=== PATIENT | female | born 1960 | race Caucasian/White ===

== ENCOUNTER → 2016-06-13 | Outpatient (CLI) | payer MEDICARE ==
--- NOTE | 2016-06-14 11:04 | MM ---
Reason for exam: screening (asymptomatic). Last mammogram was performed 1 year and 2 months ago. History: Patient is postmenopausal and has history of other cancer at age 54. Took estrogen for 12 years beginning at age 39. Physical Findings: A clinical breast exam by your physician is recommended on an annual basis and results should be correlated with mammographic findings. MG 3D Screening Mammo W/Cad Bilateral CC and MLO view(s) were taken. Prior study comparison: April 14, 2015, bilateral MG 3d screening mammo w/cad. June 27, 2013, left breast MG diagnostic mammo LT w CAD. The breast tissue is heterogeneously dense. This may lower the sensitivity of mammography. There is no discrete abnormality. No significant changes when compared with prior studies. ASSESSMENT: Negative, BI-RAD 1 RECOMMENDATION: Routine screening mammogram of both breasts in 1 year.
== END | disposition home or self-care (01) ==
LOC: RADMAMWWP 15:52
PROVIDERS: ATTEND Obstetrics & Gynecology
DX: Z12.31 Encounter for screening mammogram for malignant neoplasm of breast (principal)
CPT/HCPCS: 77063; G0202

== ENCOUNTER → 2017-06-29 | Outpatient (CLI) | payer MEDICARE ==
--- NOTE | 2017-06-30 11:29 | BD ---
EXAMINATION TYPE: Axial Bone Density DATE OF EXAM: 06/29/2017 COMPARISON: NONE CLINICAL HISTORY: Z13.820 OSTEOPOROSIS SCREENING Height: 65.5 Weight: 217.8 FRAX RISK QUESTIONS: Alcohol (3 or more units per day): no Family History (Parent hip fracture): no Glucocorticoids (More than 3mos): yes (Ex: prednisone, prednisolone, methylprednisolone, dexamethasone, and hydrocortisone). History of Fracture in Adulthood: no Secondary Osteoporosis: 1. Type 1 Diabetes: no 2. Hyperthyroidism: no 3. Menopause before 45: yes 4. Malnutrition: no 5. Chronic liver disease: no Rheumatoid Arthritis: no Current Tobacco Use: no RISK FACTORS HISTORY OF: Family History of Osteoporosis: yes Active: yes Diet low in dairy products/other sources of calcium: no Postmenopausal woman: age 39 hysterectomy Lost more than 2 inches in height since high school: yes Frequent falls: yes Adrenal Insufficiency: no MEDICATIONS: effexor, besylate amlodipine, Neurontin, mexiletine, Restasis, travantanz, singulair, vi tamins, ventolin Prednisone or other steroids: yes/cortef How Long: for a while Additional History: EXAM MEASUREMENTS: Bone mineral densitometry was performed using the [employer] System. Bone mineral density as measured about the Lumbar spine is: ----- L1-L4(G/cm2): 1.077 T Score Values are as follows: ----- L2: -1.1 ----- L3: -0.7 ----- L4: -0.5 ----- L1-L4: -0.9 Bone mineral density has: decreased -6.8 % since study of: 03/02/2012 Bone mineral density about the R hip (g/cm2): 0.995 Bone mineral density about the L hip (g/cm2): 1.062 T Score values are as follows: -----R Neck: -0.3 -----L Neck: 0.2 -----R Total: 0.1 -----L Total: 0.5 Bone mineral density has: increased 2.7 % since study of: 12.21.2012 IMPRESSION: No evidence for osteoporosis or osteopenia. NOTE: T-SCORE=SD OF THE YOUNG ADULT MEAN.
--- NOTE | 2017-06-30 13:28 | MM ---
Reason for exam: screening (asymptomatic). Last mammogram was performed 1 year and 1 month ago. History: Patient is postmenopausal and has history of other cancer at age 54. Took estrogen for 12 years beginning at age 39. Physical Findings: A clinical breast exam by your physician is recommended on an annual basis and results should be correlated with mammographic findings. MG Screening Mammo w CAD Bilateral CC and MLO view(s) were taken. Prior study comparison: June 13, 2016, bilateral MG 3d screening mammo w/cad. April 14, 2015, bilateral MG 3d screening mammo w/cad. The breast tissue is heterogeneously dense. This may lower the sensitivity of mammography. There are benign appearing few left breast calcifications, similar to priors. No suspicious abnormality. No significant changes when compared with prior studies. ASSESSMENT: Benign, BI-RAD 2 RECOMMENDATION: Routine screening mammogram of both breasts in 1 year.
== END | disposition home or self-care (01) ==
LOC: RADMAMWWP 15:01
PROVIDERS: ATTEND Obstetrics & Gynecology
DX: Z12.31 Encounter for screening mammogram for malignant neoplasm of breast (principal); Z13.820 Encounter for screening for osteoporosis
CPT/HCPCS: 77067; 77080

== ENCOUNTER 2017-09-07 10:52 | Day surgery (SDC) | payer MEDICARE ==
[2017-09-04 16:26] VITALS: BMI 32.3
[~2017-09-07 10:52] MED LIST: ALBUTEROL NEB (CONC) 2.5 MG/0.5 ML INHALATION ONE; ATROPINE SULFATE 0.4 MG/ML 1 ML VIAL IM ONE; HYDROCORTISONE SUCCINATE 100 MG/2 ML VIAL IV STA; LIDOCAINE VISCOUS 300 MG/15 ML CUP MUCOUS MEM ONE; Pre Op ABX Message 1 EACH MISC MISCELLANE ONE
[2017-09-07 11:24] VITALS: TEMP 97.2
[2017-09-07] MEDS ORDERED: ONDANSETRON 4 MG/2 ML VIAL IVP ONE (11:41)
[2017-09-07 11:47] LABS: Glucose,Whole Blood 90 mg/dL (75-99)
[2017-09-07] MEDS: LACTATED RINGERS 1,000 ML IV SCH ×2 (11:50→12:04)
[2017-09-07] MEDS ORDERED: PROPOFOL 10 MG/ML 20 ML VIAL IV ONE (12:06)
[2017-09-07] MEDS ORDERED: LIDOCAINE 1% INJ 10MG/ML (20 ML MDV) ONE (12:06)
[2017-09-07] MEDS ORDERED: MIDAZOLAM 2 MG/2 ML VIAL ONE (12:06)
[2017-09-07 13:19] VITALS: BP 109/63; PULSE 100; RESP 16
[2017-09-07 15:18] LABS: Appearance,BF Cloudy; Color,BF Colorless
--- NOTE | 2017-09-07 17:22 | PCN ---
PROCEDURE NOTE PROCEDURE: Bronchoscopy, airway examination, therapeutic lavage, BAL. PREOPERATIVE DIAGNOSIS: Severe chronic bronchial asthma. POSTOPERATIVE DIAGNOSIS: Severe chronic bronchial asthma. The patient's procedure took place in room #1. The HOME ECONOMIST provided general anesthesia or unconscious sedation. There was informed consent and universal timeout. After the patient was adequately sedated and being fully monitored, the bronchoscope was inserted through the right nostril. It passed through the right nasopharynx into the oropharynx. The hypopharynx was identified and topicalized. The hypopharyngeal structures including anterior commissure, true cords, false cords, arytenoids, piriform sinuses, right and left vallecula and epiglottis all appeared relatively normal. After topicalization, the bronchoscope was pushed through the glottic opening into the trachea. Yellow secretions were noted in the trachea. They were suctioned. The tracheal lj was sharp. The right and left mainstem were topicalized. The trachea was otherwise normal. Next, after topicalization, the right upper lobe and its three segments, right middle lobe and its two segments, the right lower lobe and its five segments, the left upper lobe proper and its two segments, the lingula and its two segments and the left lower lobe and its four segments were all evaluated. They had similar findings of diffuse bronchitis with erythema and hyperemia of the airways. There was vascular engorgement. The mucosa was friable. There were thick yellow secretions noted throughout, particularly in the right lung. Next, the bronchoscope was wedged into the right middle lobe. The BAL took place. The patient tolerated the procedure relatively well. There was no bleeding. There was no dominant mass or tumor. Additional saline was used throughout the lung to lavage the lungs. After the mucus and secretions were cleared, the bronchoscope was withdrawn. The patient will be recovered. I will discuss the results with the patient's . MMODL / IJN: [id number] /
[2017-09-07 18:19] LABS: Nucleated Cells, Body Fluid 2100 /uL; RBC, Body Fluid 0 /uL
[2017-09-07 18:20] LABS: Mononuclear WBC,Body Fluid 1 %; Polynuclear WBC,Body Fluid 98 %; Total Cells Counted,Body Fluid 100
== END 2017-09-07 13:32 | disposition home or self-care (01) ==
LOC: ORWHC2ENDO 10:52
PROVIDERS: ATTEND Internal Medicine Critical Care Medicine
DX: J45.50 Severe persistent asthma, uncomplicated (principal); J40 Bronchitis, not specified as acute or chronic; J81.1 Chronic pulmonary edema; J32.9 Chronic sinusitis, unspecified; Z86.711 Personal history of pulmonary embolism; I10 Essential (primary) hypertension; E27.40 Unspecified adrenocortical insufficiency; R20.2 Paresthesia of skin; K21.9 Gastro-esophageal reflux disease without esophagitis; Z79.51 Long term (current) use of inhaled steroids; Z79.899 Other long term (current) drug therapy; Z91.040 Latex allergy status; Z91.048 Other nonmedicinal substance allergy status; Z91.09 Other allergy status, other than to drugs and biological substances
CPT/HCPCS: 94640; 87798 ×3; 87496; 87498; 87529; 88108; 88305; 89050; 87252; 87502; 87634; 87070; 87205; 87116; 87102; 87206; 31624; J2250; J0461; J1720; J2405; J2001; J2704

== ENCOUNTER 2017-09-11 11:22 | Inpatient (IN) | payer MEDICARE ==
--- NOTE | 2017-09-11 12:06 | ED ---
URI HPI - General Source: patient, RN notes reviewed Mode of arrival: ambulatory Limitations: no limitations <Abdoulaye García - Last Filed: 09/11/17 13:37> <Berlin Page - Last Filed: 09/11/17 14:04> - General Chief Complaint: Upper Respiratory Infection Stated Complaint: Bad cough Time Seen by Provider: 09/11/17 11:47 - History of Present Illness Initial Comments: This a 57-year-old female presents emergency Department chief complaint of worsening cough. Patient states she's had a chronic cough unable to bring up the phlegm in which her type copyist did a bronchoscopy on . She states that she's been having worsening symptom worsening cough which is still nonproductive over the weekend. She did call his office in which the office stated to go to the emergency department to be seen by her type copyist who is . Patient reports no fever no chills. She does have a history of asthma. She states she has pain when she coughs but no resting chest pain. Denies any nausea, diaphoretic episodes. She states that she is coughing so hard she has vomited. (Abdoulaye García) - Related Data Home Medications Medication Instructions Recorded Confirmed Budesonide [Pulmicort] 0.5 mg INHALATION RT-BID 07/25/13 09/11/17 Carboxymethylcellulose Sodium 1 drop OPHTHALMIC QID 07/25/13 09/11/17 [Refresh Tears] Formoterol Fumarate [Perforomist] 1 puff INHALATION RT-BID 07/25/13 09/11/17 Hydrocortisone [Cortef] 20 mg PO HS 07/25/13 09/11/17 Hydrocortisone [Cortef] 40 mg PO DAILY 07/25/13 09/11/17 Montelukast [Singulair] 10 mg PO HS 07/25/13 09/11/17 Travoprost [Travatan Z 0.004%] 1 drop BOTH EYES HS 07/25/13 09/11/17 amLODIPine [Norvasc] 5 mg PO DAILY 07/25/13 09/11/17 Albuterol Inhaler [Ventolin Hfa 1 puff INHALATION RT-TID PRN 09/17/13 09/11/17 Inhaler] DULoxetine HCL [Cymbalta] 60 mg PO DAILY 09/04/17 09/11/17 Gabapentin [Neurontin] 300 mg PO BID 09/04/17 09/11/17 Gabapentin [Neurontin] 600 mg PO HS 09/04/17 09/11/17 Mexiletine [Mexitil] 200 mg PO Q8HR 09/04/17 09/11/17 Tolterodine ER [Detrol LA] 4 mg PO DAILY 09/04/17 09/11/17 cycloSPORINE [Restasis] 1 applicator BOTH EYES BID 09/04/17 09/11/17 Allergies Allergy/AdvReac Type Severity Reaction Status Date / Time Latex, Natural Rubber Allergy Severe Dyspnea Verified 09/11/17 12:03 iodine Allergy Unknown Rash/Hives Verified 09/11/17 12:03 chlorhexidine Allergy Rash/Hives Verified 09/11/17 12:03 [From [facility]] Review of Systems ROS Other: All systems not noted in ROS Statement are negative. <Abdoulaye García - Last Filed: 09/11/17 13:37> ROS Other: All systems not noted in ROS Statement are negative. <Berlin Page - Last Filed: 09/11/17 14:04> ROS Statement: Those systems with pertinent positive or pertinent negative responses have been documented in the HPI. Past Medical History Past Medical History: Asthma, GERD/Reflux, Hypertension, Pneumonia, Pulmonary Embolus (PE) Additional Past Medical History / Comment(s): ADRENAL INSUFFICIENCY, CONSTIPATION, GLAUCOMA chronic pain in neck and back, neuropathy History of Any Multi-Drug Resistant Organisms: None Reported Past Surgical History: Bladder Surgery, Hysterectomy Additional Past Surgical History / Comment(s): lt achilles tendon surgery, SINUS SURGERY, BLADDER SUSPENSION, ACID REFLUX SURGERY, RT CARPAL TUNNEL Past Anesthesia/Blood Transfusion Reactions: Family History of Problems w/ Anesthesia, Motion Sickness, Postoperative Nausea & Vomiting (PONV) Additional Past Anesthesia/Blood Transfusion Reaction / Comment(s): MOTHER HAD PONV AND DIFFICULTY WAKING AFTER SURGERY Past Psychological History: Anxiety, Depression Smoking Status: Former smoker Past Alcohol Use History: Occasional Past Drug Use History: None Reported - Past Family History Father Family Medical History: Cancer, CVA/TIA Mother Family Medical History: Cancer, Deep Vein Thrombosis (DVT) Additional Family Medical History / Comment(s): MOTHER HAD PONV AND DIFFICULTY WAKING AFTER SURGERY <Abdoulaye García - Last Filed: 09/11/17 13:37> General Exam General appearance: alert, in no apparent distress Neck exam: Present: normal inspection. Absent: tenderness, meningismus, lymphadenopathy Respiratory exam: Present: wheezes, rhonchi. Absent: normal lung sounds bilaterally, respiratory distress, rales, stridor Cardiovascular Exam: Present: regular rate, normal rhythm, normal heart sounds. Absent: systolic murmur, diastolic murmur, rubs, gallop, clicks Neurological exam: Present: alert, oriented X3, CN II-XII intact Skin exam: Present: warm, dry, intact, normal color. Absent: rash <Abdoulaye García - Last Filed: 09/11/17 13:37> Course <Abdoulaye García - Last Filed: 09/11/17 13:37> <Berlin Page - Last Filed: 09/11/17 14:04> Vital Signs 09/11/17 09/11/17 09/11/17 11:40 13:34 13:35 Temperature 98.5 F 98.3 F Pulse Rate 87 88 88 Respiratory 18 200 H Rate Blood Pressure 157/74 141/68 O2 Sat by Pulse 95 98 Oximetry 09/11/17 13:45 Temperature Pulse Rate 84 Respiratory Rate Blood Pressure O2 Sat by Pulse Oximetry - Reevaluation(s) Reevaluation #1: 09/11/17 14:03 I Sarwat saw examine the patient and I reviewed and agree with the PA findings included all diagnostic interpretations and treatment plans. I also did discuss the case with Dr. Jaramillo. I also discussed case with Dr. Iglesias. Patient does demonstrate diffuse is shortening for wheezing with diminished breath sounds. X-ray does show evidence of a pneumonic process aspiration pneumonia/pneumonitis is suspected. (Berlin Page) Medical Decision Making - Lab Data Result diagrams: 09/11/17 12:53 <Abdoulaye García - Last Filed: 09/11/17 13:37> - Lab Data Result diagrams: 09/11/17 12:53 09/11/17 12:53 <Berlin Page - Last Filed: 09/11/17 14:04> - Lab Data Lab Results 09/11/17 09/11/17 Range/Units 12:53 12:53 WBC 15.7 H (3.8-10.6) k/uL RBC 5.26 (3.80-5.40) m/uL Hgb 15.1 (11.4-16.0) gm/dL Hct 46.7 H (34.0-46.0) % MCV 88.8 (80.0-100.0) fL MCH 28.8 (25.0-35.0) pg MCHC 32.4 (31.0-37.0) g/dL RDW 13.2 (11.5-15.5) % Plt Count 354 (150-450) k/uL Neutrophils % 86 % Lymphocytes % 7 % Monocytes % 5 % Eosinophils % 1 % Basophils % 0 % Neutrophils # 13.4 H (1.3-7.7) k/uL Lymphocytes # 1.2 (1.0-4.8) k/uL Monocytes # 0.8 (0-1.0) k/uL Eosinophils # 0.1 (0-0.7) k/uL Basophils # 0.0 (0-0.2) k/uL Sodium 138 (137-145) mmol/L Potassium 4.9 (3.5-5.1) mmol/L Chloride 103 (98-107) mmol/L Carbon Dioxide 27 (22-30) mmol/L Anion Gap 8 mmol/L BUN 20 H (7-17) mg/dL Creatinine 0.89 (0.52-1.04) mg/dL Est GFR (CKD-EPI)AfAm 82 (>60 ml/min/1.73 sqM) Est GFR (CKD-EPI)NonAf 71 (>60 ml/min/1.73 sqM) Glucose 94 (74-99) mg/dL Calcium 9.4 (8.4-10.2) mg/dL Magnesium 2.3 (1.6-2.3) mg/dL Total Bilirubin 0.5 (0.2-1.3) mg/dL AST 24 (14-36) U/L ALT 42 (9-52) U/L Alkaline Phosphatase 109 (38-126) U/L Total Protein 6.7 (6.3-8.2) g/dL Albumin 4.2 (3.5-5.0) g/dL Disposition <Abdoulaye García - Last Filed: 09/11/17 13:37> <Berlin Page - Last Filed: 09/11/17 14:04> Clinical Impression: Pneumonitis, Persistent cough, Asthma Disposition: ADMITTED IP TO THIS HOSP Condition: Stable
--- NOTE | 2017-09-11 12:26 | XR ---
EXAMINATION TYPE: XR chest 2V DATE OF EXAM: 09/11/2017 COMPARISON: 09/22/2013 HISTORY: 57-year-old female with cough and pain TECHNIQUE: PA and lateral views FINDINGS: Heart normal size. Aorta and pulmonary vasculature within normal limits. There are patchy right great er than left bibasilar opacities. No pleural effusion. Slight eventration right hemidiaphragm. IMPRESSION: Patchy opacities right greater than left lung base could represent areas of atelectasis or developing infectious/aspiration pneumonitis.
[2017-09-11] MEDS ORDERED: IPRATROPIUM-ALBUTEROL 3 ML NEB INHALATION STA (13:08)
[2017-09-11 13:21] LABS: Albumin 4.2 g/dL (3.5-5.0); Calcium 9.4 mg/dL (8.4-10.2); Magnesium 2.3 mg/dL (1.6-2.3); Potassium 4.9 mmol/L (3.5-5.1); Total Bilirubin 0.5 mg/dL (0.2-1.3); Total Protein 6.7 g/dL (6.3-8.2)
[2017-09-11 13:34] LABS: Basophils % (A) 0 %; Eosinophils # (A) 0.1 k/uL (0-0.7); Eosinophils % (A) 1 %; HCT 46.7 % (34.0-46.0); HGB 15.1 gm/dL (11.4-16.0); Lymphocytes # (A) 1.2 k/uL (1.0-4.8); Lymphocytes % (A) 7 %; MCH 28.8 pg (25.0-35.0); MCHC 32.4 g/dL (31.0-37.0); MCV 88.8 fL (80.0-100.0); Mean Platelet Volume 6.9; Monocytes # (A) 0.8 k/uL (0-1.0); Monocytes % (A) 5 %; Neutrophils # (A) 13.4 k/uL (1.3-7.7); Neutrophils % (A) 86 %; Platelet Count 354 k/uL (150-450); RBC 5.26 m/uL (3.80-5.40); RDW 13.2 % (11.5-15.5); WBC 15.7 k/uL (3.8-10.6)
[2017-09-11] MEDS ORDERED: LEVOFLOXACIN 750MG-D5W PMX 750 MG in DEXTROSE/WATER 1 150ML.BAG IVPB STA (13:37)
[2017-09-11] MEDS ORDERED: PNEUMONIA PROTOCOL UTILIZED 1 EACH MISC PO PRN (13:38)
[2017-09-11] MEDS ORDERED: IPRATROPIUM-ALBUTEROL 3 ML NEB INHALATION PRN (13:38)
[2017-09-11 15:56] VITALS: BMI 31.3
[2017-09-11] MEDS ORDERED: guaiFENesin-DM 100-10MG/5ML 10 ML CUP PO PRN (16:24)
--- NOTE | 2017-09-11 17:23 | HP ---
HISTORY AND PHYSICAL CHIEF COMPLAINTS: Shortness of breath and cough. HISTORY OF PRESENT ILLNESS: This 57-year-old woman with a past history of asthma, GERD, hypertension, history of pulmonary embolism, history of renal insufficiency, being followed by Dr. Jaramillo in the outpatient setting was complaining of shortness of breath and cough since last week. The patient had bronchoscopy and lavage by Dr. Jaramillo. The patient is complaining of shortness of breath and because of increasing cough, the patient came to [facility] and right lower lobe pneumonia suspected. Patient admitted for further evaluation and treatment. There is no history of fever, rigors, chills. No history of headache, loss of consciousness or seizures. PAST MEDICAL HISTORY: History of asthma, GERD, hypertension, pneumonia, pulmonary embolism. MEDICATIONS: Prior to admission include home medications are: 1. Restasis 1 application b.i.d. 2. Norvasc 5 mg p.o. daily. 3. Travatan 0.04% 1 drop q.h.s. 4. Detrol LA 4 mg b.i.d. 5. Singulair 10 mg q.h.s. 6. 200 mg q.8h p.r.n. 7. Cortef 20 mg and 40 mg. 8. Neurontin 300 mg p.o. b.i.d. and 60 mg q.h.s. 9. Perforomist 1 puff b.i.d. 10.Cymbalta 60 mg. 11.Refresh 1 drop q.h.s. 12.Pulmicort 0.5 b.i.d. 13.Ventolin HFA 1 puff b.i.d. p.r.n. ALLERGIES: LATEX, IODINE AND HIBICLENS. FAMILY HISTORY: History of cancer, CVA, TIA. SOCIAL HISTORY: History of alcohol, occasional smoking. REVIEW OF SYSTEMS: ENT: No diminished hearing or vision. CARDIOVASCULAR: No angina or palpitation. RESPIRATORY: As mentioned earlier. GI: No nausea. : No dysuria. NERVOUS SYSTEM: No numbness or weakness. ALLERGY/IMMUNOLOGY: No history of asthma. MUSCULOSKELETAL: As mentioned earlier. HEMATOLOGY: No history of anemia. ENDOCRINE: No history of diabetes or hypothyroidism. CONSTITUTIONAL: As mentioned earlier. DERMATOLOGY: Negative. RHEUMATOLOGY: Negative. PSYCHIATRY: As mentioned earlier. PHYSICAL EXAM: Patient is alert, oriented x3. Pulse is 84, blood pressure 125/75, respiration 16, temp 98.1, pulse ox 94% on room air. HEENT: Conjunctivae normal. Oral mucosa moist. NECK: No jugular venous distention. No carotid bruit. No lymph node enlargement. CARDIOVASCULAR: S1, S2. No S3, no S4. RESPIRATORY: Breath sounds diminished in the bases. A few scattered rhonchi and crackles. Expiratory wheezing also heard. No bronchial breath sounds. ABDOMEN: Soft, nontender. No mass palpable. LEGS: No edema, no swelling. NERVOUS SYSTEM: Higher functions as mentioned earlier. Moves all 4 limbs. No focal motor or sensory deficits. LYMPHATICS: No lymphadenopathy in the neck, axillae, groin. SKIN: No ulcer, rash, bleeding. LABS: WBC 15.7, hemoglobin is 15.1. ASSESSMENT: 1. Acute bronchial asthma acute exacerbation with acute lower lobe pneumonia possibly aspiration. 2. History of recent bronchoscopy. 3. History of gastroesophageal reflux disease. 4. History of chronic intermittent bronchial asthma. 5. Hypertension. 6. History pneumonia. 7. History of pulmonary embolus. 8. History of adrenal insufficiency. 9. Glaucoma. 10.History of bladder surgery. 11.History of anxiety, depression. 12.Remote history of nicotine dependence. RECOMMENDATIONS AND DISCUSSION: This 57-year-old woman who was admitted with multiple medical issues, at this time I recommend continue with the current medications. Optimize bronchodilator treatment, empiric antibiotics. Follow cultures and I would also recommend IV steroids. Monitor blood sugars closely and I would also obtain cultures. Home medication will be monitored and DVT prophylaxis. Prognosis guarded because of multiple complex medical issues. We will closely follow the patient with Dr. Jaramillo. MMMINDYL / NIKHILN: [id number] / [facility] SYSTEMCortney
[2017-09-11 18:39] LABS: Glucose,Whole Blood 121 mg/dL (75-99)
[2017-09-11] MEDS: INSULIN ASPART 100 UNIT/ML 1 ML 10 ML VIAL SQ SCH ×2 (19:05→21:01)
[2017-09-11] MEDS: PIPERACILLIN-TAZOBACTAM 3.375 GM in DEXTROSE/WATER 1 50ML.BAG IVPB SCH (19:05)
[2017-09-11] MEDS: methylPREDNISolone SOD SUCCI 125 MG/2 ML VIAL IV SCH (19:06)
[2017-09-11] MEDS: HEPARIN SODIUM,PORCINE 5,000 UNIT/ML 1 ML VIAL SQ SCH (19:08)
[2017-09-11] MEDS: MEXILETINE 200 MG CAP PO SCH (19:13)
[2017-09-11] MEDS: BUDESONIDE 1 MG/2 ML NEBU INHALATION SCH (19:26)
[2017-09-11] MEDS: FORMOTEROL FUMARATE 20 MCG/2 ML NEBU INHALATION SCH (19:26)
[2017-09-11] MEDS: IPRATROPIUM-ALBUTEROL 3 ML NEB INHALATION SCH ×2 (19:26)
[2017-09-11] MEDS ORDERED: BUDESONIDE 0.5 MG/2 ML NEBU INHALATION SCH (20:00)
[2017-09-11] MEDS: ARTIFICIAL TEARS-HYPROMELLOSE DROPS 15 ML BTL BOTH EYES SCH ×2 (20:48→21:01)
[2017-09-11] MEDS: cycloSPORINE 0.05% OPHTH 0.4 ML DROPERETTE BOTH EYES SCH (20:49)
[2017-09-11] MEDS: LATANOPROST 0.005% OPHTH DROPS 2.5 ML BTL BOTH EYES SCH (20:50)
[2017-09-11] MEDS: GABAPENTIN 300 MG CAP PO SCH ×2 (20:50)
[2017-09-11] MEDS: MONTELUKAST 10 MG TAB PO SCH (20:51)
[2017-09-11] MEDS ORDERED: HEPARIN SODIUM,PORCINE 5,000 UNIT/ML 1 ML VIAL SQ SCH (21:00)
[2017-09-12] MEDS: MEXILETINE 200 MG CAP PO SCH ×4 (00:05→23:11)
[2017-09-12] MEDS: PIPERACILLIN-TAZOBACTAM 3.375 GM in DEXTROSE/WATER 1 50ML.BAG IVPB SCH ×4 (00:05→23:08)
[2017-09-12] MEDS: HEPARIN SODIUM,PORCINE 5,000 UNIT/ML 1 ML VIAL SQ SCH ×4 (00:05→23:11)
[2017-09-12] MEDS: methylPREDNISolone SOD SUCCI 125 MG/2 ML VIAL IV SCH ×5 (00:05→23:11)
[2017-09-12] MEDS: ACETAMINOPHEN TAB 325 MG TAB PO PRN ×2 (01:08→23:10)
[2017-09-12 07:02] LABS: Glucose,Whole Blood 118 mg/dL (75-99)
[2017-09-12] MEDS: INSULIN ASPART 100 UNIT/ML 1 ML 10 ML VIAL SQ SCH ×4 (07:15→20:16)
[2017-09-12 08:45] LABS: Basophils % (A) 0 %; Eosinophils % (A) 0 %; HCT 45.2 % (34.0-46.0); HGB 15.1 gm/dL (11.4-16.0); Lymphocytes # (A) 0.7 k/uL (1.0-4.8); Lymphocytes % (A) 6 %; MCH 29.8 pg (25.0-35.0); MCHC 33.4 g/dL (31.0-37.0); MCV 89.3 fL (80.0-100.0); Mean Platelet Volume 7.9; Monocytes # (A) 0.3 k/uL (0-1.0); Monocytes % (A) 2 %; Neutrophils # (A) 9.8 k/uL (1.3-7.7); Neutrophils % (A) 91 %; Platelet Count 287 k/uL (150-450); RBC 5.06 m/uL (3.80-5.40); RDW 13.2 % (11.5-15.5); WBC 10.8 k/uL (3.8-10.6)
[2017-09-12 08:49] LABS: Anion Gap 13 mmol/L; Blood Urea Nitrogen 16 mg/dL (7-17); Calcium 9.6 mg/dL (8.4-10.2); Carbon Dioxide 21 mmol/L (22-30); Chloride 104 mmol/L (98-107); Glucose 122 mg/dL (74-99); Potassium 4.9 mmol/L (3.5-5.1); Sodium 138 mmol/L (137-145)
[2017-09-12] MEDS: FORMOTEROL FUMARATE 20 MCG/2 ML NEBU INHALATION SCH ×2 (09:03→19:20)
[2017-09-12] MEDS: BUDESONIDE 1 MG/2 ML NEBU INHALATION SCH ×2 (09:03→19:20)
[2017-09-12] MEDS: IPRATROPIUM-ALBUTEROL 3 ML NEB INHALATION SCH ×4 (09:03→19:20)
[2017-09-12] MEDS: OXYBUTYNIN XL 5 MG TAB.ER.24 PO SCH (09:18)
[2017-09-12] MEDS: PANTOPRAZOLE 40 MG TABLET PO SCH (09:18)
[2017-09-12] MEDS: amLODIPine 5 MG TAB PO SCH (09:18)
[2017-09-12] MEDS: DULoxetine HCL 60 MG CAPSULE.DR PO SCH (09:18)
[2017-09-12] MEDS: GABAPENTIN 300 MG CAP PO SCH ×2 (09:19→20:15)
[2017-09-12] MEDS: cycloSPORINE 0.05% OPHTH 0.4 ML DROPERETTE BOTH EYES SCH ×2 (09:19→20:15)
[2017-09-12] MEDS: ARTIFICIAL TEARS-HYPROMELLOSE DROPS 15 ML BTL BOTH EYES SCH ×4 (09:19→21:41)
[2017-09-12] MEDS: traMADol 50 MG TAB PO PRN ×2 (09:45→18:43)
--- NOTE | 2017-09-12 11:19 | P.CNPUL ---
History of Present Illness Consult date: 09/12/17 Reason for consult: dyspnea, cough, asthma, hypoxemia, pneumonia, abnormal CXR/ CT Chief complaint: Shortness of breath/cough History of present illness: Pulmonary consult dated 09/12/2017 57-year-old female well-known to me. She presents as a bridge problem with complaints of worsening cough and shortness of breath. She underwent bronchoscopy by myself last . It was done primarily for airway secretion consistent control and also for sampling of the lower respiratory tract. Since that time, she's been complaining of increasing shortness of breath cough. The cough is mostly nonproductive. It sounds like some with tracheal bronchomalacia. It's a very high-pitched vibratory cough. Anyway, I spoke to the ER yesterday we decided to admit the patient to the hospital. She denied fever chills. She is not coughing up any blood. There is no chest pain or chest discomfort. Other than the cough and shortness of breath, she's doing reasonably well. She does have some wheezing but the wheezing is mild. Her #1 complaint is he persistent and refractory cough. Sampling via the bronchoscopy so far is negative. Cytology was negative. Review of Systems A 12 point review of system is positive for cough which is mostly nonproductive shortness of breath chest tightness and wheezing. Her primary complaint is of cough and her secondary complaint shortness of breath. The other symptoms are relatively mild. No chest pain or chest discomfort. No fever or chills. Not coughing up any blood at this time. Past Medical History Past Medical History: Asthma, GERD/Reflux, Hypertension, Pneumonia, Pulmonary Embolus (PE) Additional Past Medical History / Comment(s): ADRENAL INSUFFICIENCY, CONSTIPATION, GLAUCOMA , cataracats, endometreosis, chronic pain in neck and back, neuropathy hands/feet, occ constipation, arthritis. History of Any Multi-Drug Resistant Organisms: None Reported Past Surgical History: Bladder Surgery, Hysterectomy Additional Past Surgical History / Comment(s): lt achilles tendon surgery, SINUS SURGERY, BLADDER SUSPENSION, ACID REFLUX SURGERY, RT CARPAL TUNNEL, bronchosopy Past Anesthesia/Blood Transfusion Reactions: Family History of Problems w/ Anesthesia, Motion Sickness, Postoperative Nausea & Vomiting (PONV) Additional Past Anesthesia/Blood Transfusion Reaction / Comment(s): MOTHER HAD PONV AND DIFFICULTY WAKING AFTER SURGERY Smoking Status: Former smoker - Past Family History Father Family Medical History: Cancer, CVA/TIA Mother Family Medical History: Cancer, Deep Vein Thrombosis (DVT) Additional Family Medical History / Comment(s): MOTHER HAD PONV AND DIFFICULTY WAKING AFTER SURGERY Medications and Allergies Home Medications Medication Instructions Recorded Confirmed Type Budesonide [Pulmicort] 0.5 mg INHALATION RT-BID 07/25/13 09/11/17 History Carboxymethylcellulose Sodium 1 drop OPHTHALMIC QID 07/25/13 09/11/17 History [Refresh Tears] Formoterol Fumarate [Perforomist] 1 puff INHALATION RT-BID 07/25/13 09/11/17 History Hydrocortisone [Cortef] 20 mg PO HS 07/25/13 09/11/17 History Hydrocortisone [Cortef] 40 mg PO DAILY 07/25/13 09/11/17 History Montelukast [Singulair] 10 mg PO HS 07/25/13 09/11/17 History Travoprost [Travatan Z 0.004%] 1 drop BOTH EYES HS 07/25/13 09/11/17 History amLODIPine [Norvasc] 5 mg PO DAILY 07/25/13 09/11/17 History Albuterol Inhaler [Ventolin Hfa 1 puff INHALATION RT-TID PRN 09/17/13 09/11/17 History Inhaler] DULoxetine HCL [Cymbalta] 60 mg PO DAILY 09/04/17 09/11/17 History Gabapentin [Neurontin] 300 mg PO BID 09/04/17 09/11/17 History Gabapentin [Neurontin] 600 mg PO HS 09/04/17 09/11/17 History Mexiletine [Mexitil] 200 mg PO Q8HR 09/04/17 09/11/17 History Tolterodine ER [Detrol LA] 4 mg PO DAILY 09/04/17 09/11/17 History cycloSPORINE [Restasis] 1 applicator BOTH EYES BID 09/04/17 09/11/17 History Allergies Allergy/AdvReac Type Severity Reaction Status Date / Time Latex, Natural Rubber Allergy Severe Dyspnea Verified 09/11/17 12:03 iodine Allergy Unknown Rash/Hives Verified 09/11/17 12:03 chlorhexidine Allergy Rash/Hives Verified 09/11/17 12:03 [From Arvind] Physical Exam Osteopathic Statement: *. No significant issues noted on an osteopathic structural exam other than those noted in the History and Physical/Consult. Vitals: Vital Signs Temp Pulse Pulse Resp BP BP Pulse Ox 09/12/17 09:28 92 09/12/17 09:17 92 09/12/17 09:16 92 09/12/17 09:03 92 09/12/17 08:00 100 18 09/12/17 05:18 98.3 F 100 18 145/93 90 L 09/11/17 22:56 18 09/11/17 21:09 98.4 F 89 18 145/76 94 L 09/11/17 19:49 80 09/11/17 19:36 84 09/11/17 19:35 84 09/11/17 19:26 80 09/11/17 16:00 84 16 09/11/17 15:28 98.1 F 84 16 125/75 95 09/11/17 14:54 99.3 F 88 18 114/67 95 09/11/17 14:00 98.1 F 84 16 125/75 95 09/11/17 13:45 84 09/11/17 13:38 95 09/11/17 13:35 98.3 F 88 20 141/68 98 09/11/17 13:34 88 09/11/17 11:40 98.5 F 87 18 157/74 95 Intake and Output 09/11/17 09/12/17 09/12/17 22:59 06:59 14:59 Intake Total 240 Balance 240 Intake: Oral 240 Other: Voiding Method Toilet Toilet # Voids 1 2 No acute distress, oriented 3. The patient does have some cushingoid features. No aguilar distress audible wheezing or use of accessory muscles. HEENT examination is grossly unremarkable. Mucous membranes are moist. No oral lesions. Neck supple. Full range of motion. No adenopathy thyromegaly or neck vein distention. Cardiovascular examination reveals regular rhythm rate. S1-S2 normal. No S3 or S4. No discernible murmur noted. Lungs reveal diminished breath sounds throughout. This some expiratory rhonchi and wheezes. There is prolongation. The patient's cough is very harsh sounding. Breath sounds are equal bilaterally. No crackles. Abdomen soft bowel sounds are heard. No masses or tenderness. Extremities are intact. No cyanosis clubbing or edema. Skin is without rash or lesion. Neurologic examination is brief but nonfocal. Results - Laboratory Findings CBC and BMP: 09/12/17 07:41 09/12/17 07:41 Abnormal lab findings: Abnormal Labs 09/11/17 09/11/17 09/11/17 12:53 12:53 18:30 WBC 15.7 H Hct 46.7 H Neutrophils # 13.4 H Lymphocytes # Carbon Dioxide BUN 20 H Glucose POC Glucose (mg/dL) 121 H 09/12/17 09/12/17 09/12/17 06:59 07:41 07:41 WBC 10.8 H Hct Neutrophils # 9.8 H Lymphocytes # 0.7 L Carbon Dioxide 21 L BUN Glucose 122 H POC Glucose (mg/dL) 118 H - Diagnostic Findings Chest x-ray: report reviewed (Chest x-ray labs and medications are all reviewed. ), image reviewed Assessment and Plan Assessment: Assessment Severe persistent chronic bronchial asthma, status post bronchoscopy last week History of gastroesophageal reflux disease Hypertension by history Previous history of pulmonary embolism History of adrenal insufficiency History of glaucoma Previous history of bladder surgery and hysterectomy Status post Achilles tendon rupture Previous history of bladder suspension Plan: Plan dated 09/12/2017 The patient should be on DuoNeb's 4 times a day and when necessary. We'll make sure the patient's on Pulmicort 1 mg mixed with formoterol twice a day. In addition, we can suspend the Cortef for the time being and put the patient on Solu-Medrol 60 mg every 6. In addition, we'll make sure the patient's on adequate cough medications including Tussionex and/or Phenergan with codeine and /or promethazine with codeine along with double-stranded Tessalon Perles 200 mg 3 times a day. Additional recommendations and suggestions are forthcoming. Prognosis is guarded. Time with Patient: Greater than 30
[2017-09-12 11:31] LABS: Glucose,Whole Blood 123 mg/dL (75-99)
[2017-09-12 11:50] LABS: Hemoglobin A1C 5.7 % (4.0-6.0)
[2017-09-12] MEDS: BENZONATATE 100 MG CAP PO SCH ×2 (13:02→21:40)
--- NOTE | 2017-09-12 14:10 | PN ---
PROGRESS NOTE DATE OF SERVICE: 09/12/2017 INTERVAL HISTORY: This is a 57-year-old woman who was admitted with acute bronchial asthma, acute exacerbation, possible pneumonia, is being closely monitored. Dr. Jaramillo is following the patient closely. No chest pain. No palpitations. No fever. The patient continues to have a high-pitched cough, no fever. PHYSICAL EXAM: Alert and oriented x3, pulse is 100, blood pressure 140/90, respiration 18, temperature 98.2, pulse ox 98% on room air. HEENT: Conjunctivae normal. Oral mucosa moist. Neck is no jugular venous distention. No lymph node. CARDIOVASCULAR: S1, S2 muffled. RESPIRATORY: Breath sounds diminished at the bases, a few scattered rhonchi. No crackles. ABDOMEN: Soft, nontender. LEGS: No edema, no swelling. NERVOUS SYSTEM: No focal deficit. LABS: WBC 10.8 and glucose 122. ASSESSMENT: 1. Bronchial asthma acute exacerbation with possible acute lower lobe bronchopneumonia, possibly aspiration. 2. History of recent bronchoscopy. 3. History of gastroesophageal reflux disease. 4. History of chronic intermittent bronchial asthma. 5. Hypertension. 6. History of pneumonia. 7. History of pulmonary embolism. 8. History of adrenal insufficiency. 9. Glaucoma. 10.History of bladder surgery. 11.Anxiety, depression. 12.Remote history of nicotine dependence. RECOMMENDATION AND DISCUSSION: In this 57-year-old woman who presented with multiple complex medical issues, will monitor the patient closely, continue with the current management and symptomatic treatment. Otherwise, continue with the intensive bronchodilator treatment. Closely follow with Dr. Jaramillo. Prognosis guarded because of multiple medical issues. Further recommendations to follow. Patient is on high-dose IV steroids as well. MMODL / IJN: [id number] /
--- NOTE | 2017-09-12 16:05 | XR ---
EXAMINATION TYPE: XR chest 2V DATE OF EXAM: 09/12/2017 COMPARISON: 09/11/2017 TECHNIQUE: PA and lateral views submitted. HISTORY: Cough FINDINGS: Persistent subsegmental consolidation in both lung bases. Vague nodular density right midlung measuri ng less than a centimeter. No overt failure or pneumothorax. No pleural effusion. Hypertrophic and de generative change of the spine. IMPRESSION: 1. Persistent patchy infiltrate greater on the right. Follow-up to resolution recommended
[2017-09-12 17:00] LABS: Glucose,Whole Blood 119 mg/dL (75-99)
[2017-09-12 20:02] LABS: Glucose,Whole Blood 143 mg/dL (75-99)
[2017-09-12] MEDS: LATANOPROST 0.005% OPHTH DROPS 2.5 ML BTL BOTH EYES SCH (20:15)
[2017-09-12] MEDS: MONTELUKAST 10 MG TAB PO SCH (20:15)
[2017-09-13] MEDS: traMADol 50 MG TAB PO PRN ×3 (03:34→17:49)
[2017-09-13] MEDS: IPRATROPIUM-ALBUTEROL 3 ML NEB INHALATION PRN (03:39)
[2017-09-13] MEDS: guaiFENesin-DM 100-10MG/5ML 10 ML CUP PO PRN ×2 (04:00→11:46)
[2017-09-13] MEDS: methylPREDNISolone SOD SUCCI 125 MG/2 ML VIAL IV SCH ×3 (05:19→17:43)
[2017-09-13 07:11] LABS: Glucose,Whole Blood 123 mg/dL (75-99)
[2017-09-13] MEDS: IPRATROPIUM-ALBUTEROL 3 ML NEB INHALATION SCH ×4 (08:12→19:25)
[2017-09-13] MEDS: BUDESONIDE 1 MG/2 ML NEBU INHALATION SCH ×2 (08:12→19:25)
[2017-09-13] MEDS: FORMOTEROL FUMARATE 20 MCG/2 ML NEBU INHALATION SCH ×2 (08:12→19:25)
[2017-09-13 08:13] LABS: Basophils % (A) 0 %; Eosinophils % (A) 0 %; HCT 47.6 % (34.0-46.0); HGB 14.8 gm/dL (11.4-16.0); Lymphocytes # (A) 0.8 k/uL (1.0-4.8); Lymphocytes % (A) 5 %; MCH 28.1 pg (25.0-35.0); MCHC 31.2 g/dL (31.0-37.0); MCV 90.3 fL (80.0-100.0); Mean Platelet Volume 6.8; Monocytes # (A) 0.4 k/uL (0-1.0); Monocytes % (A) 3 %; Neutrophils # (A) 14.5 k/uL (1.3-7.7); Neutrophils % (A) 92 %; Platelet Count 399 k/uL (150-450); RBC 5.28 m/uL (3.80-5.40); RDW 13.3 % (11.5-15.5); WBC 15.8 k/uL (3.8-10.6)
[2017-09-13 08:17] LABS: Calcium 9.7 mg/dL (8.4-10.2); Potassium 4.7 mmol/L (3.5-5.1)
[2017-09-13] MEDS: INSULIN ASPART 100 UNIT/ML 1 ML 10 ML VIAL SQ SCH ×4 (09:15→21:39)
[2017-09-13] MEDS: PIPERACILLIN-TAZOBACTAM 3.375 GM in DEXTROSE/WATER 1 50ML.BAG IVPB SCH (09:31)
[2017-09-13] MEDS: BENZONATATE 100 MG CAP PO SCH ×3 (09:37→21:39)
[2017-09-13] MEDS: DULoxetine HCL 60 MG CAPSULE.DR PO SCH (09:37)
[2017-09-13] MEDS: GABAPENTIN 300 MG CAP PO SCH ×3 (09:38→21:37)
[2017-09-13] MEDS: cycloSPORINE 0.05% OPHTH 0.4 ML DROPERETTE BOTH EYES SCH ×2 (09:38→21:37)
[2017-09-13] MEDS: ARTIFICIAL TEARS-HYPROMELLOSE DROPS 15 ML BTL BOTH EYES SCH ×4 (09:39→21:38)
[2017-09-13] MEDS: MEXILETINE 200 MG CAP PO SCH ×2 (09:40→15:56)
[2017-09-13] MEDS: HEPARIN SODIUM,PORCINE 5,000 UNIT/ML 1 ML VIAL SQ SCH ×2 (09:40→15:57)
[2017-09-13] MEDS: PANTOPRAZOLE 40 MG TABLET PO SCH (09:41)
[2017-09-13] MEDS: amLODIPine 5 MG TAB PO SCH (09:41)
[2017-09-13] MEDS: OXYBUTYNIN XL 5 MG TAB.ER.24 PO SCH (09:42)
--- NOTE | 2017-09-13 10:10 | P.PN ---
Subjective Progress Note Date: 09/13/17 Principal diagnosis: Asthma exacerbation/cough Progress note dated 09/13/2017 57-year-old female with history of chronic bronchial asthma. She was admitted primarily because of cough and shortness of breath. She underwent bronchoscopy last . Thus far, all sampling has been negative. She was admitted primarily because of persistent cough which was refractory to usual therapy. Currently still coughing. So short of breath. She seemed to get short of breath when she has a paroxysmal cough. Producing occasional phlegm. No fever or chills. No chest pain or chest discomfort. She is on significant therapy with bronchodilators steroids antitussives antibiotics, etc. Objective - Vital Signs Vital signs: Vital Signs Temp 98.0 F 09/13/17 05:18 Pulse 90 09/13/17 08:36 Resp 16 09/13/17 05:18 BP 116/61 09/13/17 05:18 Pulse Ox 92 L 09/13/17 08:12 Intake & Output 09/12/17 09/13/17 09/13/17 18:59 06:59 18:59 Intake Total 1290 250 Balance 1290 250 Intake: Intake, IV Titration 50 Amount Piperacillin-Tazobactam 3 50 .375 gm In Dextrose/Water 1 50ml.bag @ 12.5 mls/hr IVPB Q8HR [facility] Rx#: [id number] Oral 1240 250 Other: Voiding Method Toilet Toilet Toilet # Voids 2 1 - Exam No acute distress, oriented 3. Cushingoid habitus noted. HEENT examination is grossly unremarkable. Mucous membranes are moist. No oral lesions. Neck supple. Full range of motion. No adenopathy thyromegaly or neck vein distention. Cardiovascular examination reveals regular rhythm rate. S1-S2 normal. No S3 or S4. No discernible murmur noted. Breath sounds are difficult to auscultate. She takes a deep breath, she starts to cough. Mild wheezing is noted. Some coarse rhonchi are appreciated. Her sounds are equal bilaterally. Abdomen soft bowel sounds are heard. No masses or tenderness. Extremities are intact. No cyanosis clubbing or edema. Skin is without rash or lesion. Neurologic examination is brief but nonfocal. - Labs CBC & Chem 7: 09/13/17 07:34 09/13/17 07:34 Labs: Abnormal Lab Results - Last 24 Hours (Table) 09/12/17 09/12/17 09/12/17 Range/Units 11:22 16:37 20:01 WBC (3.8-10.6) k/uL Hct (34.0-46.0) % Neutrophils # (1.3-7.7) k/uL Lymphocytes # (1.0-4.8) k/uL BUN (7-17) mg/dL POC Glucose (mg/dL) 123 H 119 H 143 H (75-99) mg/dL Glucose (74-99) mg/dL 09/13/17 09/13/17 09/13/17 Range/Units 06:55 07:34 07:34 WBC 15.8 H (3.8-10.6) k/uL Hct 47.6 H (34.0-46.0) % Neutrophils # 14.5 H (1.3-7.7) k/uL Lymphocytes # 0.8 L (1.0-4.8) k/uL BUN 19 H (7-17) mg/dL POC Glucose (mg/dL) 123 H (75-99) mg/dL Glucose 113 H (74-99) mg/dL Microbiology - Last 24 Hours (Table) 09/11/17 16:35 Urine Culture - Preliminary Urine,Clean Catch 09/11/17 12:53 Blood Culture - Preliminary Blood No Growth after 24 hours Assessment and Plan Assessment: Assessment Severe persistent chronic bronchial asthma, status post bronchoscopy last week History of gastroesophageal reflux disease Hypertension by history Previous history of pulmonary embolism History of adrenal insufficiency History of glaucoma Previous history of bladder surgery and hysterectomy Status post Achilles tendon rupture Previous history of bladder suspension Plan: Plan dated 09/12/2017 The patient should be on DuoNeb's 4 times a day and when necessary. We'll make sure the patient's on Pulmicort 1 mg mixed with formoterol twice a day. In addition, we can suspend the Cortef for the time being and put the patient on Solu-Medrol 60 mg every 6. In addition, we'll make sure the patient's on adequate cough medications including Tussionex and/or Phenergan with codeine and /or promethazine with codeine along with double-stranded Tessalon Perles 200 mg 3 times a day. Additional recommendations and suggestions are forthcoming. Prognosis is guarded. Plan dated 09/13/2017 The patient is doing about the same or maybe slightly better. I asked the nurse to put her on Xanax 0.5 mg twice a day. She remains on all the medications that she was on yesterday. We'll continue to follow. The codeine containing cough syrup does help with her cough. Prognosis is guarded. She probably in for another day or 2. Time with Patient: Less than 30
[2017-09-13] MEDS: ALPRAZolam 0.5 MG TAB PO PRN ×2 (10:24→21:48)
[2017-09-13] MEDS: cefTRIAXone IN SWFI 1,000 MG/10 ML SYRINGE IVP SCH (11:45)
[2017-09-13] MEDS: AZITHROMYCIN 500 MG in DEXTROSE 5% IN WATER 250 ML IVPB SCH ×2 (11:46)
[2017-09-13 11:49] LABS: Glucose,Whole Blood 117 mg/dL (75-99)
--- NOTE | 2017-09-13 15:38 | PN ---
PROGRESS NOTE DATE OF SERVICE: 09/13/2017 This 57-year-old woman who has had a past medical history of multiple medical problems was admitted with bronchial asthma acute exacerbation with possible acute left lobe bronchopneumonia. The patient still having incessant cough. No chest pain. No palpitations. No fever. EXAM: Alert and oriented x3. Pulse is 84, blood pressure 116/69, respirations 16, temperature 98 degrees, pulse ox 90% on room air. HEENT: Conjunctivae normal. NECK: No jugular venous distention. CARDIOVASCULAR: S1, S2 muffled. RESPIRATORY: Breath sounds diminished in the bases. A few scattered rhonchi and crackles. Expiratory wheezing. ABDOMEN: Soft, nontender. LEGS: No edema. No swelling. NERVOUS SYSTEM: No focal deficits. LABS: WBC 15.8, hemoglobin 14.8. ASSESSMENT: 1. Bronchial asthma acute exacerbation with possible acute lower lobe bronchopneumonia possibly aspiration. 2. History of recent bronchoscopy. 3. Gastroesophageal reflux disease. 4. History of chronic intermittent bronchial asthma. 5. Hypertension. 6. History of pneumonia. 7. History of pulmonary embolus. 8. History of adrenal insufficiency. 9. History of glaucoma. 10.History of bladder surgery. 11.History of anxiety and depression. 12.Remote history of nicotine dependence. RECOMMENDATIONS AND DISCUSSION: I recommend to continue current management and symptomatic treatment. I recommend finish antibiotic Rocephin, Zithromax and continue to monitor. Continue with steroids. Continue with the symptomatic treatment. The cultures are negative so far. Further recommendations to follow. MMODL / IJN: [id number] /
[2017-09-13] MEDS: NYSTATIN 100,000 UNIT/ML SUSP 500,000 UNIT/5 ML CUP PO SCH ×3 (15:56→21:39)
[2017-09-13 16:42] LABS: Glucose,Whole Blood 113 mg/dL (75-99)
[2017-09-13 19:40] LABS: Glucose,Whole Blood 172 mg/dL (75-99)
[2017-09-13] MEDS: MONTELUKAST 10 MG TAB PO SCH (21:38)
[2017-09-13] MEDS: LATANOPROST 0.005% OPHTH DROPS 2.5 ML BTL BOTH EYES SCH (21:38)
[2017-09-14] MEDS ORDERED: methylPREDNISolone SOD SUCCI 125 MG/2 ML VIAL ONE
[2017-09-14] MEDS ORDERED: HEPARIN SODIUM,PORCINE 5,000 UNIT/ML 1 ML VIAL ONE
[2017-09-14] MEDS ORDERED: guaiFENesin-DM 100-10MG/5ML 10 ML CUP ONE
[2017-09-14] MEDS ORDERED: MEXILETINE 200 MG CAP ONE
[2017-09-14] MEDS ORDERED: traMADol 50 MG TAB ONE
[2017-09-14] MEDS: methylPREDNISolone SOD SUCCI 125 MG/2 ML VIAL IV SCH ×4 (04:57→17:45)
[2017-09-14] MEDS: HEPARIN SODIUM,PORCINE 5,000 UNIT/ML 1 ML VIAL SQ SCH ×3 (04:57→17:44)
[2017-09-14] MEDS: MEXILETINE 200 MG CAP PO SCH ×3 (04:58→17:43)
[2017-09-14] MEDS: traMADol 50 MG TAB PO PRN ×2 (06:15→20:16)
[2017-09-14 07:06] LABS: Glucose,Whole Blood 113 mg/dL (75-99)
[2017-09-14] MEDS: INSULIN ASPART 100 UNIT/ML 1 ML 10 ML VIAL SQ SCH ×4 (07:25→20:21)
[2017-09-14 07:36] LABS: Anion Gap 9 mmol/L; Blood Urea Nitrogen 18 mg/dL (7-17); Carbon Dioxide 26 mmol/L (22-30); Chloride 104 mmol/L (98-107); Glucose 110 mg/dL (74-99); Potassium 4.9 mmol/L (3.5-5.1); Sodium 139 mmol/L (137-145)
[2017-09-14 07:55] LABS: Basophils % (A) 0 %; Eosinophils % (A) 0 %; HGB 14.1 gm/dL (11.4-16.0); Lymphocytes # (A) 0.6 k/uL (1.0-4.8); Lymphocytes % (A) 5 %; MCH 29.7 pg (25.0-35.0); MCHC 32.9 g/dL (31.0-37.0); MCV 90.2 fL (80.0-100.0); Mean Platelet Volume 8.6; Monocytes # (A) 0.4 k/uL (0-1.0); Monocytes % (A) 3 %; Neutrophils # (A) 11.7 k/uL (1.3-7.7); Neutrophils % (A) 91 %; Platelet Count 263 k/uL (150-450); RBC 4.76 m/uL (3.80-5.40); RDW 13.2 % (11.5-15.5); WBC 12.8 k/uL (3.8-10.6)
[2017-09-14] MEDS: BUDESONIDE 1 MG/2 ML NEBU INHALATION SCH ×2 (08:06→19:09)
[2017-09-14] MEDS: FORMOTEROL FUMARATE 20 MCG/2 ML NEBU INHALATION SCH ×2 (08:08→19:09)
[2017-09-14] MEDS: IPRATROPIUM-ALBUTEROL 3 ML NEB INHALATION SCH ×4 (08:08→19:09)
[2017-09-14] MEDS: AZITHROMYCIN 500 MG in DEXTROSE 5% IN WATER 250 ML IVPB SCH ×2 (08:35)
[2017-09-14] MEDS: NYSTATIN 100,000 UNIT/ML SUSP 500,000 UNIT/5 ML CUP PO SCH ×4 (08:36→22:20)
[2017-09-14] MEDS: cefTRIAXone IN SWFI 1,000 MG/10 ML SYRINGE IVP SCH (08:36)
[2017-09-14] MEDS: OXYBUTYNIN XL 5 MG TAB.ER.24 PO SCH (08:36)
[2017-09-14] MEDS: cycloSPORINE 0.05% OPHTH 0.4 ML DROPERETTE BOTH EYES SCH ×2 (08:37→20:21)
[2017-09-14] MEDS: amLODIPine 5 MG TAB PO SCH (08:37)
[2017-09-14] MEDS: DULoxetine HCL 60 MG CAPSULE.DR PO SCH (08:37)
[2017-09-14] MEDS: ARTIFICIAL TEARS-HYPROMELLOSE DROPS 15 ML BTL BOTH EYES SCH ×4 (08:37→22:19)
[2017-09-14] MEDS: BENZONATATE 100 MG CAP PO SCH ×3 (08:37→22:20)
[2017-09-14] MEDS: PANTOPRAZOLE 40 MG TABLET PO SCH ×2 (08:37→17:44)
[2017-09-14] MEDS: GABAPENTIN 300 MG CAP PO SCH ×3 (08:37→20:21)
[2017-09-14] MEDS: ALPRAZolam 0.5 MG TAB PO PRN ×2 (08:48→22:20)
[2017-09-14] MEDS: SUCRALFATE 1 GM TAB PO SCH ×2 (11:03→17:43)
[2017-09-14 11:28] LABS: Glucose,Whole Blood 112 mg/dL (75-99)
--- NOTE | 2017-09-14 14:58 | P.PN ---
Subjective Progress Note Date: 09/14/17 Principal diagnosis: Exacerbation of severe persistent bronchial asthma Progress note dated 09/13/2017 57-year-old female with history of chronic bronchial asthma. She was admitted primarily because of cough and shortness of breath. She underwent bronchoscopy last . Thus far, all sampling has been negative. She was admitted primarily because of persistent cough which was refractory to usual therapy. Currently still coughing. So short of breath. She seemed to get short of breath when she has a paroxysmal cough. Producing occasional phlegm. No fever or chills. No chest pain or chest discomfort. She is on significant therapy with bronchodilators steroids antitussives antibiotics, etc. On 09/14/2017 patient seen again in follow-up on medical surgical floor. Still coughing, not able to bring up much sputum. Yesterday we added double strength tessalon, and cough syrup with codeine. Lung sounds reveal improved air entry bilaterally, still prolongation of expiratory phase. Room air pulse ox is 90%, patient is afebrile, vital signs are stable. Today's labs were noted. No new chest x-rays. Fever, no chills, patient still having symptoms of reflux/GERD, patient is already on Protonix, we will increase the frequency to twice daily, and we will add Carafate. Overall patient is improving, slowly. Objective - Vital Signs Vital signs: Vital Signs Temp 97.7 F 09/14/17 05:00 Pulse 80 09/14/17 11:58 Resp 16 09/14/17 05:00 BP 152/78 09/14/17 05:00 Pulse Ox 90 L 09/14/17 05:00 Intake & Output 09/13/17 09/14/17 09/14/17 18:59 06:59 18:59 Intake Total 250 1430 1770 Balance 250 1430 1770 Intake: Intake, IV Titration 250 250 Amount Azithromycin 500 mg In 250 250 Dextrose 5% in Water 250 ml @ 125 mls/hr IVPB DAILY [facility] Rx#:[id number] Oral 1430 1520 Other: Voiding Method Toilet Toilet Toilet # Voids 1 2 - Exam No acute distress, oriented 3. Cushingoid habitus noted. HEENT examination is grossly unremarkable. Mucous membranes are moist. No oral lesions. Neck supple. Full range of motion. No adenopathy thyromegaly or neck vein distention. Cardiovascular examination reveals regular rhythm rate. S1-S2 normal. No S3 or S4. No discernible murmur noted. Breath sounds are diminished, with propagation of expiratory phase. No rhonchi , no rales Abdomen soft bowel sounds are heard. No masses or tenderness. Extremities are intact. No cyanosis clubbing or edema. Skin is without rash or lesion. Neurologic examination is brief but nonfocal. - Labs CBC & Chem 7: 09/14/17 06:37 09/14/17 06:37 Labs: Abnormal Lab Results - Last 24 Hours (Table) 09/13/17 09/13/17 09/14/17 Range/Units 16:39 19:39 06:37 WBC 12.8 H (3.8-10.6) k/uL Neutrophils # 11.7 H (1.3-7.7) k/uL Lymphocytes # 0.6 L (1.0-4.8) k/uL BUN (7-17) mg/dL Glucose (74-99) mg/dL POC Glucose (mg/dL) 113 H 172 H (75-99) mg/dL 09/14/17 09/14/17 09/14/17 Range/Units 06:37 06:49 11:14 WBC (3.8-10.6) k/uL Neutrophils # (1.3-7.7) k/uL Lymphocytes # (1.0-4.8) k/uL BUN 18 H (7-17) mg/dL Glucose 110 H (74-99) mg/dL POC Glucose (mg/dL) 113 H 112 H (75-99) mg/dL Microbiology - Last 24 Hours (Table) 09/11/17 16:35 Urine Culture - Final Urine,Clean Catch 09/11/17 12:53 Blood Culture - Preliminary Blood No Growth after 48 hours Assessment and Plan Plan: Assessment: Exacerbation of severe persistent chronic bronchial asthma, status post bronchoscopy last week History of gastroesophageal reflux disease Hypertension by history Previous history of pulmonary embolism History of adrenal insufficiency History of glaucoma Previous history of bladder surgery and hysterectomy Status post Achilles tendon rupture Previous history of bladder suspension Plan: Continue current antibiotic coverage, continue Tessalon and cough syrup with codeine, continue nebulized bronchodilators, and IV steroids. We'll increase Protonix to twice daily, we will add Carafate. Patient is slowly improving. Not back to baseline yet I performed a history & physical examination of the patient and discussed their management with my nurse practitioner, Yanet Martinez. I reviewed the nurse practitioner's note and agree with the documented findings and plan of care. Lung sounds are positive for diminished breath sounds are prolongation of expiratory phase. The findings and the impression was discussed with the patient. I attest to the documentation by the nurse practitioner. Time with Patient: Less than 30
[2017-09-14 16:53] LABS: Glucose,Whole Blood 122 mg/dL (75-99)
--- NOTE | 2017-09-14 18:45 | PN ---
PROGRESS NOTE DATE OF SERVICE: 09/14/2017. INTERVAL HISTORY: This 57-year-old woman who was admitted with bronchial asthma acute exacerbation also had a recent bronchoscopy. The patient is being closely monitored at this time. Dr. Jaramillo is following the patient closely. No chest pain. No palpitations. No fever. EXAM: Alert and oriented x3. The pulse is 94, blood pressure 160/76, respirations 16, temperature 97.9, pulse ox 94% on room air. HEENT: Conjunctivae normal. NECK: No jugular venous distention. CARDIOVASCULAR: S1, S2 muffled. RESPIRATORY: Breath sounds diminished in the bases. Bilateral scattered rhonchi and crackles. ABDOMEN: Soft, nontender. LEGS: No edema. NERVOUS SYSTEM: No focal deficits. LABS: WBC 12.8, hemoglobin is 14.9. Accu-Cheks noted. ASSESSMENT: 1. Acute bronchial asthma acute exacerbation with acute purulent tracheobronchitis or bronchopneumonia. 2. History of recent bronchoscopy. 3. Gastroesophageal reflux disease. 4. History of chronic intermittent bronchial asthma. 5. Hypertension. 6. History of pneumonia. 7. History of pulmonary embolism. 8. History of adrenal insufficiency. 9. History of glaucoma. 10.History of bladder surgery. 11.History of anxiety, depression. 12.Remote history of nicotine dependence. RECOMMENDATIONS AND DISCUSSION: Recommend to continue current medical management and symptomatic treatment. Otherwise at this time, continue the broad-spectrum IV antibiotics, steroids. Closely follow with Dr. Jaramillo. Guarded prognosis. Further recommendations to follow. MMODL / IJN: [id number] /
[2017-09-14 20:12] LABS: Glucose,Whole Blood 141 mg/dL (75-99)
[2017-09-14] MEDS: MONTELUKAST 10 MG TAB PO SCH (20:23)
[2017-09-14] MEDS: LATANOPROST 0.005% OPHTH DROPS 2.5 ML BTL BOTH EYES SCH (22:19)
[2017-09-15] MEDS: MEXILETINE 200 MG CAP PO SCH ×4 (00:24→23:32)
[2017-09-15] MEDS: methylPREDNISolone SOD SUCCI 125 MG/2 ML VIAL IV SCH ×5 (00:25→23:33)
[2017-09-15] MEDS: HEPARIN SODIUM,PORCINE 5,000 UNIT/ML 1 ML VIAL SQ SCH ×4 (00:25→23:32)
[2017-09-15] MEDS: guaiFENesin-DM 100-10MG/5ML 10 ML CUP PO PRN ×2 (00:45→12:22)
[2017-09-15] MEDS: traMADol 50 MG TAB PO PRN ×3 (04:01→23:32)
[2017-09-15 06:58] LABS: Glucose,Whole Blood 113 mg/dL (75-99)
[2017-09-15] MEDS: IPRATROPIUM-ALBUTEROL 3 ML NEB INHALATION SCH ×4 (07:05→19:02)
[2017-09-15] MEDS: BUDESONIDE 1 MG/2 ML NEBU INHALATION SCH ×2 (07:05→19:01)
[2017-09-15] MEDS: FORMOTEROL FUMARATE 20 MCG/2 ML NEBU INHALATION SCH ×2 (07:05→19:02)
[2017-09-15 07:54] LABS: Anion Gap 8 mmol/L; Blood Urea Nitrogen 18 mg/dL (7-17); Calcium 9.1 mg/dL (8.4-10.2); Carbon Dioxide 25 mmol/L (22-30); Chloride 103 mmol/L (98-107); Glucose 107 mg/dL (74-99); Potassium 4.7 mmol/L (3.5-5.1); Sodium 136 mmol/L (137-145)
[2017-09-15 07:55] LABS: Basophils % (A) 0 %; Eosinophils % (A) 0 %; HCT 42.3 % (34.0-46.0); HGB 13.6 gm/dL (11.4-16.0); Lymphocytes # (A) 0.5 k/uL (1.0-4.8); Lymphocytes % (A) 5 %; MCH 28.9 pg (25.0-35.0); MCHC 32.2 g/dL (31.0-37.0); MCV 89.8 fL (80.0-100.0); Mean Platelet Volume 7.7; Monocytes # (A) 0.3 k/uL (0-1.0); Monocytes % (A) 3 %; Neutrophils # (A) 9.4 k/uL (1.3-7.7); Neutrophils % (A) 92 %; Platelet Count 306 k/uL (150-450); RBC 4.71 m/uL (3.80-5.40); RDW 13.2 % (11.5-15.5); WBC 10.2 k/uL (3.8-10.6)
[2017-09-15] MEDS: INSULIN ASPART 100 UNIT/ML 1 ML 10 ML VIAL SQ SCH ×4 (09:31→21:15)
[2017-09-15] MEDS: AZITHROMYCIN 500 MG in DEXTROSE 5% IN WATER 250 ML IVPB SCH ×2 (09:33)
[2017-09-15] MEDS: BENZONATATE 100 MG CAP PO SCH ×3 (09:33→21:15)
[2017-09-15] MEDS: SUCRALFATE 1 GM TAB PO SCH ×2 (09:34→17:26)
[2017-09-15] MEDS: cefTRIAXone IN SWFI 1,000 MG/10 ML SYRINGE IVP SCH (09:35)
[2017-09-15] MEDS: cycloSPORINE 0.05% OPHTH 0.4 ML DROPERETTE BOTH EYES SCH ×2 (09:36→21:14)
[2017-09-15] MEDS: GABAPENTIN 300 MG CAP PO SCH ×3 (09:37→21:15)
[2017-09-15] MEDS: amLODIPine 5 MG TAB PO SCH (09:38)
[2017-09-15] MEDS: NYSTATIN 100,000 UNIT/ML SUSP 500,000 UNIT/5 ML CUP PO SCH ×4 (09:38→21:15)
[2017-09-15] MEDS: OXYBUTYNIN XL 5 MG TAB.ER.24 PO SCH (09:40)
[2017-09-15] MEDS: DULoxetine HCL 60 MG CAPSULE.DR PO SCH (09:40)
[2017-09-15] MEDS: PANTOPRAZOLE 40 MG TABLET PO SCH ×2 (09:41→17:25)
[2017-09-15] MEDS: ARTIFICIAL TEARS-HYPROMELLOSE DROPS 15 ML BTL BOTH EYES SCH ×4 (09:43→21:12)
[2017-09-15] MEDS: ALPRAZolam 0.5 MG TAB PO PRN ×2 (11:09→23:31)
[2017-09-15 11:29] LABS: Glucose,Whole Blood 124 mg/dL (75-99)
--- NOTE | 2017-09-15 11:58 | P.PN ---
Subjective Progress Note Date: 09/15/17 Principal diagnosis: Asthma exacerbation/cough Progress note dated 09/13/2017 57-year-old female with history of chronic bronchial asthma. She was admitted primarily because of cough and shortness of breath. She underwent bronchoscopy last . Thus far, all sampling has been negative. She was admitted primarily because of persistent cough which was refractory to usual therapy. Currently still coughing. So short of breath. She seemed to get short of breath when she has a paroxysmal cough. Producing occasional phlegm. No fever or chills. No chest pain or chest discomfort. She is on significant therapy with bronchodilators steroids antitussives antibiotics, etc. Progress note dated 09/15/2017 57-year-old female with a history of severe persistent chronic bronchial asthma. The patient has been having significant cough. Tomorrow, she'll have an EGD done by GI. It may be that she's having severe acid reflux disease which is triggering her cough. She was admitted with a diagnosis of severe refractory cough and shortness of breath. She underwent bronchoscopy last . Since she has been here, she brought all the appropriate medications including systemic corticosteroids. She is also getting narcotic containing cough syrup. Despite all of that, she is only minimally improved. She is status post laparoscopic Ye fundoplication for severe acid reflux disease. It'll be interesting to know whether or not she still is suffering from severe acid reflux disease, which may be contributing to her poorly controlled cough at this time. I'm hoping to have this patient discharge in the next day or so. Objective - Vital Signs Vital signs: Vital Signs Temp 98 F 09/15/17 05:57 Pulse 82 09/15/17 07:31 Resp 18 09/15/17 05:57 BP 142/77 09/15/17 05:57 Pulse Ox 90 L 09/15/17 07:09 Intake & Output 09/14/17 09/15/17 09/15/17 18:59 06:59 18:59 Intake Total 1770 740 Balance 1770 740 Intake: Intake, IV Titration 250 Amount Azithromycin 500 mg In 250 Dextrose 5% in Water 250 ml @ 125 mls/hr IVPB DAILY [facility] Rx#:[id number] Oral 1520 740 Other: Voiding Method Toilet Toilet Toilet # Voids 2 3 - Exam No acute distress, oriented 3. Cushingoid habitus noted. HEENT examination is grossly unremarkable. Mucous membranes are moist. No oral lesions. Neck supple. Full range of motion. No adenopathy thyromegaly or neck vein distention. Cardiovascular examination reveals regular rhythm rate. S1-S2 normal. No S3 or S4. No discernible murmur noted. Breath sounds are difficult to auscultate. She takes a deep breath, she starts to cough. Mild wheezing is noted. Some coarse rhonchi are appreciated. Her sounds are equal bilaterally. Abdomen soft bowel sounds are heard. No masses or tenderness. Extremities are intact. No cyanosis clubbing or edema. Skin is without rash or lesion. Neurologic examination is brief but nonfocal. - Labs CBC & Chem 7: 09/15/17 06:45 09/15/17 06:45 Labs: Abnormal Lab Results - Last 24 Hours (Table) 09/14/17 09/14/17 09/15/17 Range/Units 16:46 20:10 06:45 Neutrophils # 9.4 H (1.3-7.7) k/uL Lymphocytes # 0.5 L (1.0-4.8) k/uL Sodium (137-145) mmol/L BUN (7-17) mg/dL Glucose (74-99) mg/dL POC Glucose (mg/dL) 122 H 141 H (75-99) mg/dL 09/15/17 09/15/17 09/15/17 Range/Units 06:45 06:57 11:27 Neutrophils # (1.3-7.7) k/uL Lymphocytes # (1.0-4.8) k/uL Sodium 136 L (137-145) mmol/L BUN 18 H (7-17) mg/dL Glucose 107 H (74-99) mg/dL POC Glucose (mg/dL) 113 H 124 H (75-99) mg/dL Microbiology - Last 24 Hours (Table) 09/11/17 12:53 Blood Culture - Preliminary Blood No Growth after 72 hours Assessment and Plan Assessment: Assessment Severe persistent chronic bronchial asthma, status post bronchoscopy last week History of gastroesophageal reflux disease, rule out worsening of her acid reflux disease Hypertension by history Previous history of pulmonary embolism History of adrenal insufficiency History of glaucoma Previous history of bladder surgery and hysterectomy Status post Achilles tendon rupture Previous history of bladder suspension Previous history of laparoscopic Ye fundoplication Plan: Plan dated 09/12/2017 The patient should be on DuoNeb's 4 times a day and when necessary. We'll make sure the patient's on Pulmicort 1 mg mixed with formoterol twice a day. In addition, we can suspend the Cortef for the time being and put the patient on Solu-Medrol 60 mg every 6. In addition, we'll make sure the patient's on adequate cough medications including Tussionex and/or Phenergan with codeine and /or promethazine with codeine along with double-stranded Tessalon Perles 200 mg 3 times a day. Additional recommendations and suggestions are forthcoming. Prognosis is guarded. Plan dated 09/13/2017 The patient is doing about the same or maybe slightly better. I asked the nurse to put her on Xanax 0.5 mg twice a day. She remains on all the medications that she was on yesterday. We'll continue to follow. The codeine containing cough syrup does help with her cough. Prognosis is guarded. She probably in for another day or 2. Plan dated 09/15/2017 The patient will have an EGD tomorrow. This will give us some indication as to whether or not she's having refractory acid reflux disease. It may be contributing to her cough. She was placed on Xanax 0.5 mg twice a day. The rest of her medications are appropriate. White count 10.2 hemoglobin 13.6 hematocrit 42.3 and platelet count 306,000. Sodium is 136 potassium 4.7 chloride is 103 CO2 25, with a BUN and creatinine of 18 and 0.78 respectively. Time with Patient: Less than 30
--- NOTE | 2017-09-15 12:01 | P.CONS ---
History of Present Illness - Reason for Consult Consult date: 09/15/17 Dysphagia Requesting physician: Beryl Iglesias - History of Present Illness 57-year-old female with a history of persistent chronic bronchial asthma Ye fundoplication 15-[address] Perea, GERD, PE after Achilles tendon rupture, chronic cervical nerve pain neuralgia with bilateral upper extremity and right lower extremity weakness, admitted with shortness of breath concern for aspiration and dysphagia. Patient has been experiencing dysphagia more so with solids for the last 3-4 months. At times she feels a globus sensation as well as a lower esophageal tightness with solid foods. She is able to drink liquids without difficulty. Denies abdominal odynophagia. She underwent bronchoscopy a week ago and she thinks on Monday night she may have aspirated secondary to multiple coughing episodes. Recent EGD. Denies unintentional weight loss hematemesis hematochezia or melena. Hemoglobin 13.6. White count 10.2. Platelet 306. BUN 18. Creatinine 0.7. Sodium 136. Potassium 4.7. Review of Systems Constitutional: Denies fever, chills, sweats, weight gain, or loss. HEENT: Negative for migraines, blurred vision or loss, earaches, drainage, tinnitus, oral mucosal lesions, admitted with dysphagia, denies odynophagia. CARDIAC: Negative for chest pain, arrhythmias, or palpitation. RESPIRATORY: Admitted with shortness of breath, hemoptysis, cough, or sputum production. GI: See HPI for pertinent findings. : Negative for hematuria, urgency, frequency, polyuria, or dysuria. GYNc: Negative vaginal discharge. MUSCULOSKELETAL: Negative for muscle aches, swelling, arthritis, and arthralgias. NEUROLOGIC: Negative for stroke or TIA. ENDOCRINE: Negative for thyroid problems. SKIN: Negative for rash or itching. PSYCHIATRIC: Negative history for depression and anxiety Past Medical History Past Medical History: Asthma, GERD/Reflux, Hypertension, Pneumonia, Pulmonary Embolus (PE) Additional Past Medical History / Comment(s): ADRENAL INSUFFICIENCY, CONSTIPATION, GLAUCOMA , cataracats, endometreosis, chronic pain in neck and back, neuropathy hands/feet, occ constipation, arthritis. History of Any Multi-Drug Resistant Organisms: None Reported Past Surgical History: Bladder Surgery, Hysterectomy Additional Past Surgical History / Comment(s): lt achilles tendon surgery, SINUS SURGERY, BLADDER SUSPENSION, ACID REFLUX SURGERY, RT CARPAL TUNNEL, bronchosopy Past Anesthesia/Blood Transfusion Reactions: Family History of Problems w/ Anesthesia, Motion Sickness, Postoperative Nausea & Vomiting (PONV) Additional Past Anesthesia/Blood Transfusion Reaction / Comm: MOTHER HAD PONV AND DIFFICULTY WAKING AFTER SURGERY Smoking Status: Former smoker - Past Family History Father Family Medical History: Cancer, CVA/TIA Mother Family Medical History: Cancer, Deep Vein Thrombosis (DVT) Additional Family Medical History / Comment(s): MOTHER HAD PONV AND DIFFICULTY WAKING AFTER SURGERY Medications and Allergies Home Medications Medication Instructions Recorded Confirmed Type Budesonide [Pulmicort] 0.5 mg INHALATION RT-BID 07/25/13 09/11/17 History Carboxymethylcellulose Sodium 1 drop OPHTHALMIC QID 07/25/13 09/11/17 History [Refresh Tears] Formoterol Fumarate [Perforomist] 1 puff INHALATION RT-BID 07/25/13 09/11/17 History Hydrocortisone [Cortef] 20 mg PO HS 07/25/13 09/11/17 History Hydrocortisone [Cortef] 40 mg PO DAILY 07/25/13 09/11/17 History Montelukast [Singulair] 10 mg PO HS 07/25/13 09/11/17 History Travoprost [Travatan Z 0.004%] 1 drop BOTH EYES HS 07/25/13 09/11/17 History amLODIPine [Norvasc] 5 mg PO DAILY 07/25/13 09/11/17 History Albuterol Inhaler [Ventolin Hfa 1 puff INHALATION RT-TID PRN 09/17/13 09/11/17 History Inhaler] DULoxetine HCL [Cymbalta] 60 mg PO DAILY 09/04/17 09/11/17 History Gabapentin [Neurontin] 300 mg PO BID 09/04/17 09/11/17 History Gabapentin [Neurontin] 600 mg PO HS 09/04/17 09/11/17 History Mexiletine [Mexitil] 200 mg PO Q8HR 09/04/17 09/11/17 History Tolterodine ER [Detrol LA] 4 mg PO DAILY 09/04/17 09/11/17 History cycloSPORINE [Restasis] 1 applicator BOTH EYES BID 09/04/17 09/11/17 History Allergies Allergy/AdvReac Type Severity Reaction Status Date / Time Latex, Natural Rubber Allergy Severe Dyspnea Verified 09/11/17 12:03 iodine Allergy Unknown Rash/Hives Verified 09/11/17 12:03 chlorhexidine Allergy Rash/Hives Verified 09/11/17 12:03 [From [facility]] Physical Exam Vitals: Vital Signs Temp Pulse Pulse Resp BP Pulse Ox 09/15/17 07:31 82 09/15/17 07:22 84 09/15/17 07:21 84 09/15/17 07:09 80 90 L 09/15/17 05:57 98 F 82 18 142/77 95 09/14/17 20:15 98.5 F 90 18 150/76 93 L 09/14/17 19:40 80 09/14/17 19:21 82 09/14/17 19:09 82 09/14/17 15:51 86 09/14/17 15:36 88 97 09/14/17 14:07 97.9 F 94 16 160/76 95 09/14/17 11:58 80 Intake and Output 09/14/17 09/15/17 09/15/17 22:59 06:59 14:59 Intake Total 240 500 Balance 240 500 Intake: Oral 240 500 Other: Voiding Method Toilet Toilet # Voids 3 3 General appearance: The patient is alert, oriented, in no acute distress. HET: Head is normocephalic and atraumatic. Pupils are equal and reactive. Oropharynx is clear without lesions. Neck: Supple without lymphadenopathy. Trachea midline. Heart: S1 S2. Regular rate and rhythm. Lungs: No crackles or wheezes are heard. Abdomen: Soft, nontender, nondistended with bowel sounds. No peritoneal signs. No palpable organomegaly or masses. Extremities: Normal skin color and turgor. No cyanosis, rash, ulceration, clubbing, or edema. Radial and pedal pulses are 2/4 bilaterally. Neurological: 4/5 bilateral upper extremity strength. Right lower extremity mild weakness 4/5. No focal deficits. Strength and sensation are grossly intact. Results CBC & Chem 7: 09/15/17 06:45 09/15/17 06:45 Labs: Abnormal Lab Results - Last 24 Hours (Table) 09/14/17 09/14/17 09/15/17 Range/Units 16:46 20:10 06:45 Neutrophils # 9.4 H (1.3-7.7) k/uL Lymphocytes # 0.5 L (1.0-4.8) k/uL Sodium (137-145) mmol/L BUN (7-17) mg/dL Glucose (74-99) mg/dL POC Glucose (mg/dL) 122 H 141 H (75-99) mg/dL 09/15/17 09/15/17 09/15/17 Range/Units 06:45 06:57 11:27 Neutrophils # (1.3-7.7) k/uL Lymphocytes # (1.0-4.8) k/uL Sodium 136 L (137-145) mmol/L BUN 18 H (7-17) mg/dL Glucose 107 H (74-99) mg/dL POC Glucose (mg/dL) 113 H 124 H (75-99) mg/dL Microbiology - Last 24 Hours (Table) 09/11/17 12:53 Blood Culture - Preliminary Blood No Growth after 72 hours Assessment and Plan (1) Dysphagia Narrative/Plan: 3-4 month history of persistent dysphagia with solids globus sensation as well as distal esophageal tightness without weight loss hematemesis been keeping melena. History of GERD Ye fundoplication 15-20 years ago. Current Visit: Yes Status: Acute Code(s): R13.10 - DYSPHAGIA, UNSPECIFIED SNOMED Code(s): 97703694 (2) Bronchial asthma Current Visit: Yes Status: Acute Code(s): J45.909 - UNSPECIFIED ASTHMA, UNCOMPLICATED SNOMED Code(s): 203269838 (3) Dyspnea Current Visit: No Status: Acute Code(s): R06.00 - DYSPNEA, UNSPECIFIED SNOMED Code(s): 601409686 Plan: 1. EGD in am. Pulmonary service has provided clearance. 2. Protonix 40 mg IV daily. The services mgr has discussed the risks, benefits and alternative therapies for the above-mentioned procedure and for both sedation/analgesia as well as necessary blood product administration, if indicated, as they pertain to this patient. The patient has indicated understanding and acceptance of the risks and procedures discussed. Thank you for this kind referral and the opportunity to participate in the care of your patient. This consultation was discussed with Dr. Garcia. The impression and plan of care have been directed as dictated.
[2017-09-15 17:07] LABS: Glucose,Whole Blood 130 mg/dL (75-99)
--- NOTE | 2017-09-15 18:22 | PN ---
PROGRESS NOTE DATE OF SERVICE: 09/15/2017. This 57-year-old woman who was admitted with acute bronchial asthma acute exacerbation is complaining of dysphagia and as well as acid reflux also. No chest pain. No palpitations. No fever. The patient had previous surgery by Dr. Perea. EXAM: Alert and oriented x3. Pulse 92, blood pressure 127/65, respirations 17, temperature 97.8, pulse ox 96% on room air. HEENT: Conjunctivae normal. NECK: No jugular venous distention. CARDIOVASCULAR: S1, S2 muffled. RESPIRATORY: Breath sounds diminished in the bases. A few scattered rhonchi and crackles. ABDOMEN: Soft, nontender. LEGS: No edema. NERVOUS SYSTEM: No focal deficits. LABS: CBC within normal limits. Sodium 136, glucose 113, 124. ASSESSMENT: 1. Acute bronchial asthma acute exacerbation with acute purulent tracheobronchitis, bronchopneumonia, history of recent bronchoscopy. 2. Severe gastroesophageal reflux disease and history of fundoplication. 3. Chronic bronchial asthma. 4. Hypertension. 5. History of pneumonia. 6. History of pulmonary embolus. 7. History of renal insufficiency. 8. History of glaucoma. 9. History of bladder surgery. 10.History of anxiety and depression. 11.Remote history of nicotine dependence. RECOMMENDATIONS AND DISCUSSION: Recommend to continue current medical management and symptomatic treatment. Otherwise at this time, I recommend close followup with Dr. Jaramillo, gastroenterology consultation and possible EGD. Guarded prognosis. Further recommendations to follow. MMODL / IJN: [id number] /
[2017-09-15 19:44] LABS: Glucose,Whole Blood 125 mg/dL (75-99)
[2017-09-15] MEDS: LATANOPROST 0.005% OPHTH DROPS 2.5 ML BTL BOTH EYES SCH (21:13)
[2017-09-15] MEDS: DOCUSATE 100 MG CAP PO SCH (21:13)
[2017-09-15] MEDS: MONTELUKAST 10 MG TAB PO SCH (21:15)
[2017-09-16] MEDS: guaiFENesin-DM 100-10MG/5ML 10 ML CUP PO PRN ×2 (02:37→18:10)
[2017-09-16] MEDS: IPRATROPIUM-ALBUTEROL 3 ML NEB INHALATION PRN (04:04)
[2017-09-16] MEDS: methylPREDNISolone SOD SUCCI 125 MG/2 ML VIAL IV SCH (06:17)
[2017-09-16 06:46] LABS: Basophils % (A) 0 %; Eosinophils % (A) 0 %; HCT 41.9 % (34.0-46.0); HGB 13.1 gm/dL (11.4-16.0); Lymphocytes # (A) 0.3 k/uL (1.0-4.8); Lymphocytes % (A) 4 %; MCH 28.4 pg (25.0-35.0); MCHC 31.4 g/dL (31.0-37.0); MCV 90.5 fL (80.0-100.0); Mean Platelet Volume 7.6; Monocytes # (A) 0.3 k/uL (0-1.0); Monocytes % (A) 3 %; Neutrophils # (A) 7.4 k/uL (1.3-7.7); Neutrophils % (A) 92 %; Platelet Count 286 k/uL (150-450); RBC 4.63 m/uL (3.80-5.40); RDW 13.2 % (11.5-15.5); WBC 8.1 k/uL (3.8-10.6)
[2017-09-16 06:58] LABS: Anion Gap 6 mmol/L; Blood Urea Nitrogen 17 mg/dL (7-17); Calcium 8.6 mg/dL (8.4-10.2); Carbon Dioxide 27 mmol/L (22-30); Chloride 104 mmol/L (98-107); Glucose 130 mg/dL (74-99); Potassium 4.5 mmol/L (3.5-5.1); Sodium 137 mmol/L (137-145)
[2017-09-16] MEDS ORDERED: PROPOFOL 10 MG/ML 20 ML VIAL IV ONE (07:02)
[2017-09-16] MEDS ORDERED: LIDOCAINE 1% INJ 10MG/ML (20 ML MDV) ONE (07:02)
[2017-09-16] MEDS ORDERED: IV FLUID CONTINUATION 950 ML IV ONE (07:07)
--- NOTE | 2017-09-16 07:19 | P.PCN ---
Date of Procedure: 09/16/17 Procedure(s) Performed: BRIEF HISTORY: Patient is a 57-year-old, pleasant, white white female, admitted hospital with exacerbation of asthma and while in the hospital is been complaining of progressive dysphagia to solids for the last 3 months duration. She has long-standing history of GERD and has status post Ye fundoplication 20 years ago. She was on PPI therapy for many years but it was discontinued a few months ago and since then has been having worsening heartburn and dysphagia. She is hence scheduled for an upper endoscopy with possible dilation.. PROCEDURE PERFORMED: Esophagogastroduodenoscopy and biopsy. PREOPERATIVE DIAGNOSIS: Intermittent dysphagia to solids of 3 months duration. IV sedation per anesthesia. PROCEDURE: After informed consent was obtained, the patient was brought into the endoscopy unit. IV sedation was administered by Anesthesia under continuous monitoring. Initially the Olympus GIF-140 video endoscope was inserted into the mouth. Esophagus intubated without any difficulty. It was gradually advanced into the stomach and duodenum and carefully examined. The bulb and the second part of the duodenum appeared normal. The scope at this time was withdrawn to the stomach, adequately insufflated with air, and upon careful examination, mucosa of the antrum, and mild gastritis and biopsies were done from this area. The body, cardia and the fundus appeared normal. The scope was then withdrawn into the esophagus. It was a small to moderate size hiatal hernia. The GE junction was located at 32 cm from the incisors. There were linear erosions in the distal esophagus consistent with LA grade B reflux esophagitis. The midesophagus distal esophagus was somewhat tortuous with retained fluid in the midesophagus but no obvious esophageal stricture. The proximal esophagus appeared normal and the patient tolerated the procedure well. IMPRESSION: 1. Linear erosions in the distal esophagus consistent with LA grade B reflux esophagitis. No evidence of esophageal stricture 2. Mild antral gastritis. 2. Small to moderate hiatal hernia RECOMMENDATIONS: The findings of this examination were discussed with the patient as well as her family. She was advised to follow with the biopsy results. She will be continued on Protonix 40 mg twice daily and follow antireflux measures..
[2017-09-16] MEDS: BUDESONIDE 1 MG/2 ML NEBU INHALATION SCH (07:42)
[2017-09-16] MEDS: IPRATROPIUM-ALBUTEROL 3 ML NEB INHALATION SCH ×4 (07:42→19:39)
[2017-09-16] MEDS: FORMOTEROL FUMARATE 20 MCG/2 ML NEBU INHALATION SCH (07:42)
[2017-09-16 08:07] LABS: Glucose,Whole Blood 122 mg/dL (75-99)
[2017-09-16] MEDS: INSULIN ASPART 100 UNIT/ML 1 ML 10 ML VIAL SQ SCH ×4 (08:31→20:56)
[2017-09-16] MEDS: AZITHROMYCIN 500 MG in DEXTROSE 5% IN WATER 250 ML IVPB SCH ×2 (08:38)
[2017-09-16] MEDS: BENZONATATE 100 MG CAP PO SCH ×3 (08:39→22:02)
[2017-09-16] MEDS: amLODIPine 5 MG TAB PO SCH (08:39)
[2017-09-16] MEDS: DULoxetine HCL 60 MG CAPSULE.DR PO SCH (08:39)
[2017-09-16] MEDS: NYSTATIN 100,000 UNIT/ML SUSP 500,000 UNIT/5 ML CUP PO SCH ×4 (08:39→22:02)
[2017-09-16] MEDS: cefTRIAXone IN SWFI 1,000 MG/10 ML SYRINGE IVP SCH (08:39)
[2017-09-16] MEDS: ARTIFICIAL TEARS-HYPROMELLOSE DROPS 15 ML BTL BOTH EYES SCH ×4 (08:40→22:02)
[2017-09-16] MEDS: DOCUSATE 100 MG CAP PO SCH ×2 (08:41→20:56)
[2017-09-16] MEDS: GABAPENTIN 300 MG CAP PO SCH ×3 (08:41→20:55)
[2017-09-16] MEDS: OXYBUTYNIN XL 5 MG TAB.ER.24 PO SCH (08:42)
[2017-09-16] MEDS: SUCRALFATE 1 GM TAB PO SCH ×3 (08:42→16:37)
[2017-09-16] MEDS: MEXILETINE 200 MG CAP PO SCH ×3 (08:42→23:50)
[2017-09-16] MEDS: HEPARIN SODIUM,PORCINE 5,000 UNIT/ML 1 ML VIAL SQ SCH ×3 (08:42→23:50)
[2017-09-16] MEDS: PANTOPRAZOLE 40 MG TABLET PO SCH ×2 (08:42→16:36)
[2017-09-16] MEDS: cycloSPORINE 0.05% OPHTH 0.4 ML DROPERETTE BOTH EYES SCH ×2 (10:33→20:57)
--- NOTE | 2017-09-16 11:11 | P.PN ---
Subjective Progress Note Date: 09/16/17 Principal diagnosis: Asthma exacerbation/cough Progress note dated 09/13/2017 57-year-old female with history of chronic bronchial asthma. She was admitted primarily because of cough and shortness of breath. She underwent bronchoscopy last . Thus far, all sampling has been negative. She was admitted primarily because of persistent cough which was refractory to usual therapy. Currently still coughing. So short of breath. She seemed to get short of breath when she has a paroxysmal cough. Producing occasional phlegm. No fever or chills. No chest pain or chest discomfort. She is on significant therapy with bronchodilators steroids antitussives antibiotics, etc. Progress note dated 09/15/2017 57-year-old female with a history of severe persistent chronic bronchial asthma. The patient has been having significant cough. Tomorrow, she'll have an EGD done by GI. It may be that she's having severe acid reflux disease which is triggering her cough. She was admitted with a diagnosis of severe refractory cough and shortness of breath. She underwent bronchoscopy last . Since she has been here, she brought all the appropriate medications including systemic corticosteroids. She is also getting narcotic containing cough syrup. Despite all of that, she is only minimally improved. She is status post laparoscopic Ye fundoplication for severe acid reflux disease. It'll be interesting to know whether or not she still is suffering from severe acid reflux disease, which may be contributing to her poorly controlled cough at this time. I'm hoping to have this patient discharge in the next day or so. Progress note dated 09/16/2017 57-year-old female with a history of severe persistent chronic bronchial asthma. She appears to have significant cough that may be caused by severe acid reflux disease. She tells me today that she was told by her who reported from the financial services agent that her problem is severe acid reflux disease. I do not see the EGD report as yet. Anyway, the patient will likely need many different drugs control her cough. Her acid reflux disease is likely triggering her asthma to be more active. She will likely need proton pump inhibitor, H2 histamine antagonist, and cytoprotective agents in combination. The patient states that she had a difficult night last night with severe coughing and shortness of breath. I did speak to the primary service. In my opinion, the patient could likely be discharged tomorrow. Objective - Vital Signs Vital signs: Vital Signs Temp 97.8 F 09/16/17 08:10 Pulse 78 09/16/17 08:10 Resp 18 09/16/17 08:10 BP 150/78 09/16/17 08:10 Pulse Ox 94 L 09/16/17 08:10 Intake & Output 09/15/17 09/16/17 09/16/17 18:59 06:59 18:59 Intake Total 990 50 Balance 990 50 Intake: IV 50 Oral 990 Other: Voiding Method Toilet Toilet Toilet # Voids 2 2 1 - Exam No acute distress, oriented 3. Cushingoid habitus noted. HEENT examination is grossly unremarkable. Mucous membranes are moist. No oral lesions. Neck supple. Full range of motion. No adenopathy thyromegaly or neck vein distention. Cardiovascular examination reveals regular rhythm rate. S1-S2 normal. No S3 or S4. No discernible murmur noted. Heart sounds are distant. Breath sounds are difficult to auscultate. She takes a deep breath, she starts to cough. Mild wheezing is noted. Some coarse rhonchi are appreciated. Her sounds are equal bilaterally. Breath sounds are mildly improved compared to yesterday's exam. Abdomen soft bowel sounds are heard. No masses or tenderness. Extremities are intact. No cyanosis clubbing or edema. Skin is without rash or lesion. Neurologic examination is brief but nonfocal. - Labs CBC & Chem 7: 09/16/17 05:32 09/16/17 05:32 Labs: Abnormal Lab Results - Last 24 Hours (Table) 09/15/17 09/15/17 09/15/17 Range/Units 11:27 17:06 19:43 Lymphocytes # (1.0-4.8) k/uL Glucose (74-99) mg/dL POC Glucose (mg/dL) 124 H 130 H 125 H (75-99) mg/dL 09/16/17 09/16/17 09/16/17 Range/Units 05:32 05:32 08:00 Lymphocytes # 0.3 L (1.0-4.8) k/uL Glucose 130 H (74-99) mg/dL POC Glucose (mg/dL) 122 H (75-99) mg/dL Microbiology - Last 24 Hours (Table) 09/11/17 12:53 Blood Culture - Preliminary Blood No Growth after 96 hours Assessment and Plan Assessment: Assessment Severe persistent chronic bronchial asthma, status post bronchoscopy last week History of gastroesophageal reflux disease, rule out worsening of her acid reflux disease Severe cough, likely triggered by her acid reflux disease. Hypertension by history Previous history of pulmonary embolism History of adrenal insufficiency History of glaucoma Previous history of bladder surgery and hysterectomy Status post Achilles tendon rupture Previous history of bladder suspension Previous history of laparoscopic Ye fundoplication Plan: Plan dated 09/12/2017 The patient should be on DuoNeb's 4 times a day and when necessary. We'll make sure the patient's on Pulmicort 1 mg mixed with formoterol twice a day. In addition, we can suspend the Cortef for the time being and put the patient on Solu-Medrol 60 mg every 6. In addition, we'll make sure the patient's on adequate cough medications including Tussionex and/or Phenergan with codeine and /or promethazine with codeine along with double-stranded Tessalon Perles 200 mg 3 times a day. Additional recommendations and suggestions are forthcoming. Prognosis is guarded. Plan dated 09/13/2017 The patient is doing about the same or maybe slightly better. I asked the nurse to put her on Xanax 0.5 mg twice a day. She remains on all the medications that she was on yesterday. We'll continue to follow. The codeine containing cough syrup does help with her cough. Prognosis is guarded. She probably in for another day or 2. Plan dated 09/15/2017 The patient will have an EGD tomorrow. This will give us some indication as to whether or not she's having refractory acid reflux disease. It may be contributing to her cough. She was placed on Xanax 0.5 mg twice a day. The rest of her medications are appropriate. White count 10.2 hemoglobin 13.6 hematocrit 42.3 and platelet count 306,000. Sodium is 136 potassium 4.7 chloride is 103 CO2 25, with a BUN and creatinine of 18 and 0.78 respectively. Plan dated 09/16/2017 The EGD revealed linear erosions in the distal esophagus consistent with grade B reflux esophagitis. No evidence of esophageal stricture. There is also mild antral gastritis. In addition, there was a small to moderate hiatal hernia. The financial services agent recommended Protonix 40 mg twice daily. She has been on that for some time and that has not really control her acid reflux disease. She may need more than one medication. I have discussed that with her. Likely discharge home in the next 24 hours. Time with Patient: Less than 30
[2017-09-16 11:35] LABS: Glucose,Whole Blood 116 mg/dL (75-99)
[2017-09-16] MEDS: traMADol 50 MG TAB PO PRN ×2 (13:23→22:22)
[2017-09-16] MEDS: ALPRAZolam 0.5 MG TAB PO PRN (13:24)
--- NOTE | 2017-09-16 15:05 | PN ---
PROGRESS NOTE DATE OF SERVICE: 09/16/2017 This is a 57-year-old woman with a past medical history of multiple medical problems, admitted with acute bronchial asthma and bronchopneumonia. The patient also had an EGD by Dr. Garcia that showed severe grade B reflux esophagitis at this time. No chest pain. No palpitations. No fever. Patient also complaining of throat pain with some swallowing difficulties, also. PHYSICAL EXAM: Alert and oriented x3. Pulse 78, blood pressure 150/70, respiration 18, temperature 97.8, pulse ox 94% on 1.5 L. HEENT: Conjunctivae normal, oral mucosa moist. Neck is no jugular venous distention. No lymph node enlargement. CARDIOVASCULAR SYSTEM: S1, S2, muffled. RESPIRATION: Breath sounds diminished at the bases, a few scattered rhonchi, no crackles. ABDOMEN: Soft, nontender. LEGS: No edema, no swelling. NERVOUS SYSTEM: No focal deficits. LABS: CBC within normal. Glucose 130. ASSESSMENT: 1. Acute bronchial asthma acute exacerbation, acute purulent tracheobronchitis with bronchopneumonia, with history of recent bronchoscopy. 2. Status post EGD showing the linear erosions in the distal esophagus consistent of grade B reflux esophagitis and mild antral gastritis. 3. Small to moderate hiatal hernia. 4. History of fundoplication. 5. Previous history of chronic bronchial asthma. 6. Hypertension. 7. Pneumonia. 8. History of pulmonary embolism. 9. History of renal insufficiency. 10.History of glaucoma. 11.History of bladder surgery. 12.Anxiety, depression. 13.Remote history of nicotine dependence. RECOMMENDATION: Recommend to continue current management and symptomatic treatment. At this time, continue with current medications. Continue with taper the steroids further. Otherwise, continue with the Protonix. Continue the rest of the medications. Guarded prognosis because of multiple complex medical issues. Further recommendations to follow. MMODL / IJN: [id number] /
[2017-09-16] MEDS: ACETAMINOPHEN TAB 325 MG TAB PO PRN (16:34)
[2017-09-16] MEDS: methylPREDNISolone SOD SUCCI 40 MG/ML 1 ML VIAL IV SCH ×2 (16:36→23:50)
[2017-09-16 16:49] LABS: Glucose,Whole Blood 126 mg/dL (75-99)
[2017-09-16] MEDS: SYMBICORT 160-4.5 MCG INHALER INHALATION SCH (19:39)
[2017-09-16 19:59] LABS: Glucose,Whole Blood 131 mg/dL (75-99)
[2017-09-16] MEDS: LATANOPROST 0.005% OPHTH DROPS 2.5 ML BTL BOTH EYES SCH (20:55)
[2017-09-16] MEDS: FAMOTIDINE 20 MG TAB PO SCH (20:56)
[2017-09-16] MEDS: MONTELUKAST 10 MG TAB PO SCH (20:56)
[2017-09-16 21:38] VITALS: RESP 16
[2017-09-17] MEDS: guaiFENesin-DM 100-10MG/5ML 10 ML CUP PO PRN (00:12)
[2017-09-17] MEDS: ALPRAZolam 0.5 MG TAB PO PRN (03:59)
[2017-09-17] MEDS: traMADol 50 MG TAB PO PRN ×2 (04:07→09:54)
[2017-09-17] MEDS: IPRATROPIUM-ALBUTEROL 3 ML NEB INHALATION PRN (04:10)
[2017-09-17 05:30] VITALS: BP 126/65; TEMP 98.6
[2017-09-17] MEDS: IPRATROPIUM-ALBUTEROL 3 ML NEB INHALATION SCH ×2 (07:06→11:05)
[2017-09-17] MEDS: SYMBICORT 160-4.5 MCG INHALER INHALATION SCH (07:06)
[2017-09-17 07:08] LABS: Glucose,Whole Blood 108 mg/dL (75-99)
[2017-09-17 07:33] VITALS: PULSE 84
[2017-09-17] MEDS: INSULIN ASPART 100 UNIT/ML 1 ML 10 ML VIAL SQ SCH (09:45)
[2017-09-17] MEDS: DOCUSATE 100 MG CAP PO SCH (09:55)
[2017-09-17] MEDS: DULoxetine HCL 60 MG CAPSULE.DR PO SCH (09:55)
[2017-09-17] MEDS: FAMOTIDINE 20 MG TAB PO SCH (09:56)
[2017-09-17] MEDS: GABAPENTIN 300 MG CAP PO SCH (09:56)
[2017-09-17] MEDS: OXYBUTYNIN XL 5 MG TAB.ER.24 PO SCH (09:57)
[2017-09-17] MEDS: NYSTATIN 100,000 UNIT/ML SUSP 500,000 UNIT/5 ML CUP PO SCH (09:57)
[2017-09-17] MEDS: HEPARIN SODIUM,PORCINE 5,000 UNIT/ML 1 ML VIAL SQ SCH (09:58)
[2017-09-17] MEDS: MEXILETINE 200 MG CAP PO SCH (09:58)
[2017-09-17] MEDS: PANTOPRAZOLE 40 MG TABLET PO SCH (09:58)
[2017-09-17] MEDS: SUCRALFATE 1 GM TAB PO SCH (09:58)
[2017-09-17] MEDS: methylPREDNISolone SOD SUCCI 40 MG/ML 1 ML VIAL IV SCH (09:58)
[2017-09-17] MEDS: BENZONATATE 100 MG CAP PO SCH (09:59)
[2017-09-17] MEDS: amLODIPine 5 MG TAB PO SCH (09:59)
[2017-09-17] MEDS: ARTIFICIAL TEARS-HYPROMELLOSE DROPS 15 ML BTL BOTH EYES SCH (09:59)
[2017-09-17] MEDS: cycloSPORINE 0.05% OPHTH 0.4 ML DROPERETTE BOTH EYES SCH (10:00)
[2017-09-17] MEDS: cefTRIAXone IN SWFI 1,000 MG/10 ML SYRINGE IVP SCH (10:00)
[2017-09-17] MEDS ORDERED: POLYETHYLENE GLYCOL 3350 17 GM POWD.PACK PO STA (10:39)
[2017-09-17 11:18] LABS: Glucose,Whole Blood 97 mg/dL (75-99)
--- NOTE | 2017-09-17 11:53 | P.PN ---
Subjective Progress Note Date: 09/17/17 Principal diagnosis: Asthma exacerbation/cough Progress note dated 09/13/2017 57-year-old female with history of chronic bronchial asthma. She was admitted primarily because of cough and shortness of breath. She underwent bronchoscopy last . Thus far, all sampling has been negative. She was admitted primarily because of persistent cough which was refractory to usual therapy. Currently still coughing. So short of breath. She seemed to get short of breath when she has a paroxysmal cough. Producing occasional phlegm. No fever or chills. No chest pain or chest discomfort. She is on significant therapy with bronchodilators steroids antitussives antibiotics, etc. Progress note dated 09/15/2017 57-year-old female with a history of severe persistent chronic bronchial asthma. The patient has been having significant cough. Tomorrow, she'll have an EGD done by GI. It may be that she's having severe acid reflux disease which is triggering her cough. She was admitted with a diagnosis of severe refractory cough and shortness of breath. She underwent bronchoscopy last . Since she has been here, she brought all the appropriate medications including systemic corticosteroids. She is also getting narcotic containing cough syrup. Despite all of that, she is only minimally improved. She is status post laparoscopic Ye fundoplication for severe acid reflux disease. It'll be interesting to know whether or not she still is suffering from severe acid reflux disease, which may be contributing to her poorly controlled cough at this time. I'm hoping to have this patient discharge in the next day or so. Progress note dated 09/16/2017 57-year-old female with a history of severe persistent chronic bronchial asthma. She appears to have significant cough that may be caused by severe acid reflux disease. She tells me today that she was told by her who reported from the track manager that her problem is severe acid reflux disease. I do not see the EGD report as yet. Anyway, the patient will likely need many different drugs control her cough. Her acid reflux disease is likely triggering her asthma to be more active. She will likely need proton pump inhibitor, H2 histamine antagonist, and cytoprotective agents in combination. The patient states that she had a difficult night last night with severe coughing and shortness of breath. I did speak to the primary service. In my opinion, the patient could likely be discharged tomorrow. Progress note dated 09/17/2017 57-year-old female who I see as a primary. She has a history of severe persistent chronic bronchial asthma. The patient Don was discovered to have significant acid reflux disease. An EGD was done on this admission. She has a previous history of a laparoscopic Ye fundoplication for severe acid reflux disease. She was admitted primarily with significant and refractory cough. The patient was recommended to be treated aggressively for her acid reflux disease. The patient could potentially be discharged today on Protonix 40 mg twice a day, Pepcid 20 mg twice a day and Carafate is a cytoprotective agent. I did tell her that I would like to see her late next week in the office just to make sure that she is doing okay. She didn't have a better night last night. She did have one severe coughing episode. She is counseled about the importance of avoiding certain things which aggravate acid reflux such as caffeine which he uses frequently and significantly, tomatoes or tomato sauce, peppermint, chocolate, alcoholic beverages, tobacco products and all citrus products. She understands. Objective - Vital Signs Vital signs: Vital Signs Temp 98.6 F 09/17/17 05:29 Pulse 84 09/17/17 07:23 Resp 16 09/17/17 05:29 BP 126/65 09/17/17 05:29 Pulse Ox 92 L 09/17/17 05:29 Intake & Output 09/16/17 09/17/17 09/17/17 18:59 06:59 18:59 Intake Total 50 640 Balance 50 640 Weight 90.718 kg Intake: IV 50 Oral 640 Other: Voiding Method Toilet Toilet Toilet # Voids 4 1 - Exam No acute distress, oriented 3. Cushingoid habitus noted. HEENT examination is grossly unremarkable. Mucous membranes are moist. No oral lesions. Neck supple. Full range of motion. No adenopathy thyromegaly or neck vein distention. Cardiovascular examination reveals regular rhythm rate. S1-S2 normal. No S3 or S4. No discernible murmur noted. Heart sounds are distant. Breath sounds are difficult to auscultate. She takes a deep breath, she starts to cough. Mild wheezing is noted. Some coarse rhonchi are appreciated. Her sounds are equal bilaterally. Breath sounds are about the same as they were the day before. Abdomen soft bowel sounds are heard. No masses or tenderness. Extremities are intact. No cyanosis clubbing or edema. Skin is without rash or lesion. Neurologic examination is brief but nonfocal. - Labs CBC & Chem 7: 09/16/17 05:32 09/16/17 05:32 Labs: Abnormal Lab Results - Last 24 Hours (Table) 09/16/17 09/16/17 09/17/17 Range/Units 16:46 19:58 07:07 POC Glucose (mg/dL) 126 H 131 H 108 H (75-99) mg/dL Microbiology - Last 24 Hours (Table) 09/11/17 12:53 Blood Culture - Preliminary Blood No Growth after 120 hours Assessment and Plan Assessment: Assessment Severe persistent chronic bronchial asthma, status post bronchoscopy last week History of gastroesophageal reflux disease, likely worsening her acid reflux disease Severe cough, likely triggered by her acid reflux disease. Hypertension by history Previous history of pulmonary embolism History of adrenal insufficiency History of glaucoma Previous history of bladder surgery and hysterectomy Status post Achilles tendon rupture Previous history of bladder suspension Previous history of laparoscopic Ye fundoplication Plan: Plan dated 09/12/2017 The patient should be on DuoNeb's 4 times a day and when necessary. We'll make sure the patient's on Pulmicort 1 mg mixed with formoterol twice a day. In addition, we can suspend the Cortef for the time being and put the patient on Solu-Medrol 60 mg every 6. In addition, we'll make sure the patient's on adequate cough medications including Tussionex and/or Phenergan with codeine and /or promethazine with codeine along with double-stranded Tessalon Perles 200 mg 3 times a day. Additional recommendations and suggestions are forthcoming. Prognosis is guarded. Plan dated 09/13/2017 The patient is doing about the same or maybe slightly better. I asked the nurse to put her on Xanax 0.5 mg twice a day. She remains on all the medications that she was on yesterday. We'll continue to follow. The codeine containing cough syrup does help with her cough. Prognosis is guarded. She probably in for another day or 2. Plan dated 09/15/2017 The patient will have an EGD tomorrow. This will give us some indication as to whether or not she's having refractory acid reflux disease. It may be contributing to her cough. She was placed on Xanax 0.5 mg twice a day. The rest of her medications are appropriate. White count 10.2 hemoglobin 13.6 hematocrit 42.3 and platelet count 306,000. Sodium is 136 potassium 4.7 chloride is 103 CO2 25, with a BUN and creatinine of 18 and 0.78 respectively. Plan dated 09/16/2017 The EGD revealed linear erosions in the distal esophagus consistent with grade B reflux esophagitis. No evidence of esophageal stricture. There is also mild antral gastritis. In addition, there was a small to moderate hiatal hernia. The track manager recommended Protonix 40 mg twice daily. She has been on that for some time and that has not really control her acid reflux disease. She may need more than one medication. I have discussed that with her. Likely discharge home in the next 24 hours. Plan dated 09/17/2017 The EGD revealed linear erosions in the distal esophagus consistent with a grade B reflux esophagitis. There was no evidence of any strictures. There is also mild antral gastritis. I told her to significantly reduce her caffeine intake. We did debt management counselor her about the foods she should avoid for acid reflux disease. In addition, we wanted to see her in the office late next week. Finally, she should be sent home on Carafate before meals and at bedtime 1 g, Pepcid 20 mg twice a day, and Protonix 40 mg twice a day. Hopefully, this aggressive antiacid policy will improve her cough and her acid reflux disease. Time with Patient: Less than 30
--- NOTE | 2017-09-17 19:18 | PN ---
PROGRESS NOTE DATE OF DICTATION: September 17, 2017 Patient is a 57 -year-old pleasant white female admitted to the hospital with exacerbation of asthma. She has been complaining of and hence she underwent an upper endoscopy yesterday that revealed evidence of recurrent hiatal hernia, LA grade B reflux esophagitis, but no evidence of esophageal stricture. She is back on Protonix 40 mg twice daily and her symptoms are gradually improving. dysphagia currently. PHYSICAL EXAMINATION: She appears comfortable. No apparent distress. VITAL SIGNS: Stable. Blood pressure is 122/86, pulse rate 82 per minute and afebrile. HEENT examination: Unremarkable. Conjunctivae pink. Sclerae anicteric. Oral cavity no lesions. Neck no jugular venous distention or lymph node enlargement. Chest was clear to auscultation. HEART: Regular rate and rhythm. ABDOMEN: Soft. Bowel sounds are positive. No organomegaly. EXTREMITIES: No pedal edema. SKIN: No rashes. NEUROLOGIC: Alert . No focal deficits. LABS: From today not done. IMPRESSION: intermittent dysphagia to solids in this lady with longstanding history of GERD, who is status post Ye fundoplication 20 years ago. Upper endoscopy done of esophageal stricture. She did have esophagitis in the distal esophagus with some pooling of liquids in the mid esophagus and recurrent hiatal hernia. RECOMMENDATIONS: Continue Protonix 40 mg twice daily. diet modification. She will see me in the office in 3 to 4 weeks following discharge from the hospital. Thank you for this consultation. MMODL / IJN: [id number] /
--- NOTE | 2017-09-17 21:08 | DS ---
DISCHARGE SUMMARY DATE OF SERVICE: 09/17/2017 FINAL DIAGNOSIS: 1. Acute bronchial asthma acute exacerbation acute tracheobronchitis with bronchopneumonia with history of recent bronchoscopy. 2. Status post EGD showing linear erosions of the distal esophagus which is consistent with grade B reflux esophagitis and mild antral gastritis. 3. Small to moderate hiatal hernia. 4. History of fundoplication. 5. Previous history of chronic bronchial asthma. 6. Hypertension. 7. Pneumonia. 8. History of pulmonary embolism. 9. History of renal insufficiency. 10.Glaucoma. 11.Bladder surgery. 12.Anxiety/depression. 13.Remote history of nicotine dependence. DISCHARGE DISPOSITION: The patient is being discharged in stable condition with guarded prognosis. Total time taken 35 minutes. HISTORY OF PRESENT ILLNESS: This 57-year-old woman with a past medical history of multiple medical problems was admitted with bronchial asthma, acute exacerbation with acute purulent tracheobronchitis or bronchopneumonia. Treated with bronchodilators and antibiotics. Patient improved significantly. Dr. Jaramillo saw the patient. On exam, vital signs stable. Cardio system: S1, S2. Abdomen soft, nontender. Central nervous system: No focal deficits. Dr. Garcia performed the EGD and showed the findings as above. DISCHARGE ADVICE AND MEDICATIONS: 1. Discharge diet is cardiac diet. 2. Activity limited until followup. 3. Follow up with Dr. Jaramillo in 2-3 days. MEDICATION: 1. Albuterol 1 puff q.i.d. 2. Norvasc 5 mg b.i.d. 3. Pulmicort 0.5 b.i.d.. 4. Restasis p.r.n. 5. Cymbalta 60 mg daily. 6. Perforomist 1 puff b.i.d. 7. Neurontin 600 mg q.h.s. 8. Neurontin 300 mg b.i.d. 9. Cortef 40 mg daily and 20 mg q.h.s. 10.Mexitil 200 mg q8h. 11.Singular 10 mg q.h.s. 12.Detrol LA 4 mg p.o. daily. 13.Travatan 0.04% 1 drop both eyes. 14.Tessalon Perles. 15.Colace 100 mg p.o. b.i.d. p.r.n. 16.Pepcid 40 mg b.i.d. 17.DuoNeb q.i.d. and p.r.n. 18.Nystatin p.r.n. 19.Protonix 40 mg daily. 20.Carafate 1 g a.c. t.i.d. 21.Ceftin 500 mg p.o. b.i.d. for 5 days. MMODL / NIKHILN: [id number] /
--- NOTE | 2017-09-19 08:40 | XR ---
EXAMINATION TYPE: XR chest 2V DATE OF EXAM: 09/18/2017 COMPARISON: 09/12/2017 TECHNIQUE: PA and lateral views submitted. HISTORY: Cough FINDINGS: A persistent subsegmental consolidation greater at the right lung base. There is no pneumothorax or i nterstitial edema. Heart size stable. IMPRESSION: 1. Stable right lower lobe infiltrate.
== END 2017-09-17 13:01 | disposition home or self-care (01) | DRG 202 ==
LOC: EC 11:22 → 5MS5E 13:56
PROVIDERS: ADMIT Hospitalist; ATTEND Hospitalist
PROC: 0DB78ZX Excision of Stomach, Pylorus, Via Natural or Artificial Opening Endoscopic, Diagnostic (ICD-10-PCS; principal; 2017-09-16 07:00)
DX: J45.51 Severe persistent asthma with (acute) exacerbation (principal); J18.0 Bronchopneumonia, unspecified organism; E27.40 Unspecified adrenocortical insufficiency; G62.9 Polyneuropathy, unspecified; R13.10 Dysphagia, unspecified; F32.9 Major depressive disorder, single episode, unspecified; F41.9 Anxiety disorder, unspecified; H40.9 Unspecified glaucoma; I10 Essential (primary) hypertension; J20.9 Acute bronchitis, unspecified; K21.0 Gastro-esophageal reflux disease with esophagitis; K29.60 Other gastritis without bleeding; K44.9 Diaphragmatic hernia without obstruction or gangrene; G89.29 Other chronic pain; M19.90 Unspecified osteoarthritis, unspecified site; M54.2 Cervicalgia; M54.9 Dorsalgia, unspecified; Z79.899 Other long term (current) drug therapy; Z90.710 Acquired absence of both cervix and uterus; Z87.891 Personal history of nicotine dependence; Z87.01 Personal history of pneumonia (recurrent); Z86.711 Personal history of pulmonary embolism; Z88.8 Allergy status to other drugs, medicaments and biological substances; Z91.041 Radiographic dye allergy status; Z91.040 Latex allergy status; Z82.3 Family history of stroke; Z83.3 Family history of diabetes mellitus; Z82.61 Family history of arthritis
CPT/HCPCS: 36415; 43239; 71046; 80048; 80053; 83036; 83735; 85025; 87040; 87086; 88305; 94640; 94760; 96365; 99284

== ENCOUNTER → 2017-09-20 | Outpatient (CLI) | payer MEDICARE ==
[2017-09-20 14:15] LABS: Basophils % (A) 0 %; Eosinophils # (A) 0.3 k/uL (0-0.7); Eosinophils % (A) 3 %; HCT 44.9 % (34.0-46.0); HGB 14.7 gm/dL (11.4-16.0); Lymphocytes # (A) 1.2 k/uL (1.0-4.8); Lymphocytes % (A) 13 %; MCH 30.2 pg (25.0-35.0); MCHC 32.8 g/dL (31.0-37.0); MCV 92.3 fL (80.0-100.0); Mean Platelet Volume 7.1; Monocytes # (A) 0.4 k/uL (0-1.0); Monocytes % (A) 4 %; Neutrophils # (A) 6.9 k/uL (1.3-7.7); Neutrophils % (A) 79 %; Platelet Count 211 k/uL (150-450); RBC 4.87 m/uL (3.80-5.40); RDW 13.5 % (11.5-15.5); WBC 8.8 k/uL (3.8-10.6)
[2017-09-20 14:29] LABS: Calcium 8.9 mg/dL (8.4-10.2); Potassium 4.6 mmol/L (3.5-5.1)
== END | disposition home or self-care (01) ==
LOC: LABWHC1 13:23
PROVIDERS: ATTEND Hospitalist
DX: J40 Bronchitis, not specified as acute or chronic (principal)
CPT/HCPCS: 36415; 80048; 85025

== ENCOUNTER → 2018-10-15 | Outpatient (CLI) | payer MEDICARE ==
--- NOTE | 2018-10-15 10:44 | FL ---
EXAMINATION TYPE: FL barium swallow w video DATE OF EXAM: 10/15/2018 COMPARISON: NONE HISTORY: Dysphasia TECHNIQUE: Fluoroscopy. FINDINGS: Fluoroscopic guidance was provided for the procedure performed in conjunction with the [facility] pathology department. Please see complete report forthcoming from the Speech Pathology departmen t. Various consistencies from thin liquid to solids were administered. Fluoroscopy time 43 seconds. Number of images: 0. No aspiration or penetration was evident. No significant pooling was observed in the vallecula. There was normal propulsion of the bolus. Patient was exhibiting some symptoms and imaging in the frontal projection with fluoroscopy was perfo rmed. There is some residual barium within the distal esophagus, additional evaluation with an esopha gram could be performed. IMPRESSION: 1. Normal modified barium swallow. 2. Consider esophagram for additional evaluation.
--- NOTE | 2018-10-15 11:10 | US ---
EXAMINATION TYPE: US abdomen complete DATE OF EXAM: 10/15/2018 COMPARISON: NONE CLINICAL HISTORY: R10.11 right upper quadrant pain,R10.84 Abd Pain. RUQ pain EXAM MEASUREMENTS: Liver Length: 13.5 cm Gallbladder Wall: 0.2 cm CBD: 0.3 cm Spleen: 8.9 cm Right Kidney: 11.4 x 3.9 x 3.6 cm Left Kidney: 8.9 x 4.4 x 4.1 cm Pancreas: Obscured by bowel gas Liver: There is increased echogenicity of the hepatic parenchyma with diminished visualization of th e portal triads most commonly relating to hepatic steatosis and limiting evaluation for underlying he patic masses. Gallbladder: No stones seen Evidence for sonographic Pearce's sign: No CBD: wnl Spleen: wnl Right Kidney: wnl Left Kidney: wnl Upper IVC: wnl Abd Aorta: wnl The intrahepatic portion of the IVC and proximal abdominal aorta are within normal limits. There is no evidence of cholelithiasis. Common bile duct is unremarkable. The visualized portions of the eckert creas are homogenous. The spleen is unremarkable. Kidneys are symmetric and free of hydronephrosis. No renal lesions are seen. IMPRESSION: 1. Sonographic findings most commonly related to hepatic steatosis. Correlate with liver function radhika ts. 2. Obscuration of the pancreas by overlying bowel gas. 3. No sonographic evidence of cholelithiasis nor acute cholecystitis.
== END | disposition home or self-care (01) ==
LOC: RADUSWWP 08:22
PROVIDERS: ATTEND Internal Medicine Critical Care Medicine
DX: R93.2 Abnormal findings on diagnostic imaging of liver and biliary tract (principal); R10.84 Generalized abdominal pain; R10.11 Right upper quadrant pain
CPT/HCPCS: 74230; 76700

== ENCOUNTER → 2018-10-31 | Outpatient (CLI) | payer MEDICARE ==
--- NOTE | 2018-10-31 10:08 | FL ---
EXAMINATION TYPE: FL barium swallow DATE OF EXAM: 10/31/2018 CLINICAL HISTORY: Dysphagia with solid foods and pills. Patient describes prior esophageal surgery fo r lower esophageal sphincter tightening. History of gastroesophageal reflux. TECHNIQUE: A single contrast esophagram is performed utilizing thin and thick barium. A total of 1 minute and 15 seconds of fluoroscopic time was utilized during procedure. 45 fluoroscopic images were saved. COMPARISON: None FINDINGS: The esophagus shows normal motility and emptying into the stomach. There are anterior proj ecting osteophytes of the cervical spine with mild impression on the upper cervical esophagus. Small hiatal hernia seen on the upright images that is sliding type as this progresses to moderate on the s upine images. No stricture noted. No significant gastroesophageal reflux was seen during real time pe rformance of this study. IMPRESSION: 1. Sliding type hiatal hernia that appears small in the upright position and moderate in the supine p osition. 2. Degenerative disc disease of the cervical spine with anterior projecting osteophytes minimally imp ressing upon the posterior esophagus.
== END | disposition home or self-care (01) ==
LOC: RADUSWWP 08:57
PROVIDERS: ATTEND Internal Medicine Critical Care Medicine
DX: K44.9 Diaphragmatic hernia without obstruction or gangrene (principal); Z91.02 Food additives allergy status; Z91.09 Other allergy status, other than to drugs and biological substances
CPT/HCPCS: 74220

== ENCOUNTER 2018-11-06 09:22 | Day surgery (SDC) | payer MEDICARE ==
[2018-11-05 11:33] VITALS: BMI 35.6
[~2018-11-06 09:22] MED LIST changes: -ALBUTEROL NEB (CONC) 2.5 MG/0.5 ML INHALATION ONE; -ATROPINE SULFATE 0.4 MG/ML 1 ML VIAL IM ONE; -HYDROCORTISONE SUCCINATE 100 MG/2 ML VIAL IV STA; +LACTATED RINGERS 1,000 ML IV SCH; +LIDOCAINE 1% 20 ML VIAL (10MG/ML) FOR IV START INTRADERMA PRN; -LIDOCAINE VISCOUS 300 MG/15 ML CUP MUCOUS MEM ONE; -Pre Op ABX Message 1 EACH MISC MISCELLANE ONE
[2018-11-06] MEDS ORDERED: ONDANSETRON 4 MG/2 ML VIAL IVP ONE (09:57)
[2018-11-06 10:01] VITALS: TEMP 98
[2018-11-06 10:10] LABS: Glucose,Whole Blood 100 mg/dL (75-99)
[2018-11-06] MEDS ORDERED: PROPOFOL 10 MG/ML 20 ML VIAL IV ONE (10:35)
[2018-11-06] MEDS ORDERED: LIDOCAINE 1% INJ 10MG/ML (20 ML MDV) ONE (10:35)
--- NOTE | 2018-11-06 11:00 | P.PCN ---
Date of Procedure: 11/06/18 Description of Procedure: BRIEF HISTORY: Patient is a 58-year-old, pleasant, female who is seen in the outpatient setting for EGD. Previously the patient had been seen in 08/2017 at which time she was hospitalized for an exacerbation of her asthma and had complained of progressive dysphagia to solids while in the hospital. Patient has a long-standing history of GERD and had a Ye fundoplication 20 years ago. At that time she has continued PPI use. Currently she is seen on dual therapy with Protonix twice daily and Pepcid twice daily as well as care.. PROCEDURE PERFORMED: Esophagogastroduodenoscopy. PREOPERATIVE DIAGNOSIS: GERD, esophageal dysphagia. ESTIMATED BLOOD LOSS: Minimal. IV sedation per anesthesia. PROCEDURE: After informed consent was obtained, the patient was brought into the endoscopy unit. IV sedation was administered by Anesthesia under continuous monitoring. Initially the Olympus GIF-190 video endoscope was inserted into the mouth. Esophagus intubated without any difficulty. It was gradually advanced into the stomach and duodenum and carefully examined. The bulb and the second part of the duodenum appeared normal, with biopsies taken. The scope at this time was withdrawn to the stomach, adequately insufflated with air, and upon careful examination, mucosa of the antrum, body, cardia and the fundus appeared normal except for some mild scattered erythema in the antrum and body suggestive of bile gastritis with biopsies of antrum and body taken. The scope was then withdrawn into the esophagus. A 3 cm hiatal hernia was noted. The GE junction was located at 37 cm from the incisors. The esophagus appeared grossly normal, previously seen distal esophageal esophagitis from 2018 is well healed and previously noted tortuosity in the mid to distal esophagus is again noted, with mid esophagus biopsies. However no masses, strictures or obstruction is seen. Patient tolerated the procedure well. IMPRESSION: 1. Mild gastritis antrum and body, biopsied. 2. No strictures, masses or other obstructive pathology noted in the esophagus with mid esophageal biopsies taken. 3. Moderate size hiatal hernia. 4. Duodenal biopsies. RECOMMENDATIONS: The findings of this examination were discussed with the patient and her . Okay to resume diet. Continue current medical management with Carafate, Protonix and Pepcid. Await pathology from biopsies.
[2018-11-06] MEDS ORDERED: IPRATROPIUM-ALBUTEROL 3 ML NEB INHALATION ONE (11:45)
[2018-11-06 14:07] VITALS: PULSE 64
[2018-11-06 14:08] VITALS: BP 136/78; RESP 18
== END 2018-11-06 12:25 | disposition home or self-care (01) ==
LOC: ORWHC2ENDO 09:22
PROVIDERS: ATTEND Internal Medicine
DX: K21.0 Gastro-esophageal reflux disease with esophagitis (principal); K29.50 Unspecified chronic gastritis without bleeding; K44.9 Diaphragmatic hernia without obstruction or gangrene; K22.8 Other specified diseases of esophagus; I10 Essential (primary) hypertension; J45.901 Unspecified asthma with (acute) exacerbation; E27.40 Unspecified adrenocortical insufficiency; Z87.891 Personal history of nicotine dependence; Z91.040 Latex allergy status; Z79.891 Long term (current) use of opiate analgesic; Z79.2 Long term (current) use of antibiotics; Z79.899 Other long term (current) drug therapy; Z90.710 Acquired absence of both cervix and uterus; Z98.890 Other specified postprocedural states; Z91.048 Other nonmedicinal substance allergy status; Z88.8 Allergy status to other drugs, medicaments and biological substances; Z86.711 Personal history of pulmonary embolism; Z79.51 Long term (current) use of inhaled steroids; Z79.52 Long term (current) use of systemic steroids
CPT/HCPCS: 94640; 88305; 88312; 43239; J2405; J2001; J2704

== ENCOUNTER 2019-02-27 10:57 | Day surgery (SDC) | payer MEDICARE ==
[2019-02-26 08:56] VITALS: BMI 35.9
[~2019-02-27 10:57] MED LIST changes: +ALBUTEROL NEB (CONC) 2.5 MG/0.5 ML INHALATION ONE; +ATROPINE SULFATE 0.4 MG/ML 1 ML VIAL IM ONE; +LIDOCAINE 2% (PF) 20 MG/ML 5 ML VIAL INHALATION ONE; +LIDOCAINE VISCOUS 300 MG/15 ML CUP MUCOUS MEM ONE; +SODIUM CHLORIDE 0.9% 1,000 ML IV SCH
[2019-02-27 11:31] VITALS: TEMP 98.1
[2019-02-27] MEDS ORDERED: CITRIC ACID-SODIUM CITRATE 15 ML CUP PO ONE (11:39)
[2019-02-27] MEDS ORDERED: SCOPOLAMINE 1.5MG/72HR PATCH TRANSDERM ONE (11:55)
[2019-02-27] MEDS ORDERED: ONDANSETRON 4 MG/2 ML VIAL IVP ONE (11:55)
[2019-02-27] MEDS ORDERED: FAMOTIDINE 20 MG/2 ML VIAL IV ONE (11:55)
[2019-02-27] MEDS ORDERED: KETAMINE 10 MG/ML 20 ML VIAL ONE (11:59)
[2019-02-27] MEDS ORDERED: LIDOCAINE 1% INJ 10MG/ML (20 ML MDV) ONE (11:59)
[2019-02-27] MEDS ORDERED: PROPOFOL 10 MG/ML 20 ML VIAL IV ONE (11:59)
[2019-02-27 12:02] LABS: Glucose,Whole Blood 104 mg/dL (75-99)
--- NOTE | 2019-02-27 12:31 | PCN ---
PROCEDURE NOTE PULMONARY/CRITICAL CARE PROCEDURE NOTE: DATE OF SERVICE: 02/27/2019 PROCEDURE: Bronchoscopy, airway examination, therapeutic lavage, BAL. PREOPERATIVE DIAGNOSIS: Severe persistent asthma, retained secretions. POSTOP DIAGNOSIS: Severe persistent asthma, retained secretions. WATER RIGHTS SPECIALIST: Dr. Jaramillo. With informed consent and universal timeout, the patient's procedure took place in room #1 endoscopy. The CROP QUANTITATIVE GENETICIST provided general anesthesia/unconscious sedation. After the patient was adequately sedated, the bronchoscope was inserted through the right nostril. It passed through the right nasopharynx into the oropharynx. The hypopharynx was identified and hospitalized. The hypopharyngeal structures including anterior commissure, true cords, false cords, arytenoids, piriform sinuses, right and left valleculae and epiglottis all appeared normal. The glottic opening was topicalized. The bronchoscope was pushed through the glottic opening into the trachea. Trachea appeared normal. Tracheal lj was sharp. The right and left mainstem were topicalized. The right upper lobe and its 3 segments, right middle lobe and its 2 segments, right lower lobe and its 5 segments, left upper lobe proper and its 2 segments, the lingula and its 2 segments and the left lower lobe and its 4 segments all had similar findings of diffuse airway erythema and hyperemia. The airways were inflamed. There was some mucosal friability. There was no dominant mass or tumor. There were thick secretions noted throughout. They were purulent appearing. There was no bleeding. The bronchoscope was wedged into the right middle lobe, 30 mL was recovered when the BAL was performed. Additional secretions were suctioned with the aid of saline lavage. The patient tolerated the procedure well and the bronchoscope was withdrawn. The specimens will be sent to the laboratory for analysis. There was no immediate complication. The patient will be recovered. MMODL / IJN: [id number] /
[2019-02-27 12:49] VITALS: BP 137/86; PULSE 85; RESP 16
== END 2019-02-27 13:07 | disposition home or self-care (01) ==
LOC: ORWHC2ENDO 10:57
PROVIDERS: ATTEND Internal Medicine Critical Care Medicine
DX: J45.50 Severe persistent asthma, uncomplicated (principal); J81.1 Chronic pulmonary edema; E27.40 Unspecified adrenocortical insufficiency; F32.9 Major depressive disorder, single episode, unspecified; T78.49XA Other allergy, initial encounter; K29.70 Gastritis, unspecified, without bleeding; J32.9 Chronic sinusitis, unspecified; M10.9 Gout, unspecified; K21.0 Gastro-esophageal reflux disease with esophagitis; J18.9 Pneumonia, unspecified organism; G62.9 Polyneuropathy, unspecified; D64.9 Anemia, unspecified; E66.9 Obesity, unspecified; I27.20 Pulmonary hypertension, unspecified; I08.1 Rheumatic disorders of both mitral and tricuspid valves; Z91.048 Other nonmedicinal substance allergy status; Z91.040 Latex allergy status; Z79.899 Other long term (current) drug therapy; Z79.51 Long term (current) use of inhaled steroids; Z86.711 Personal history of pulmonary embolism; Z82.49 Family history of ischemic heart disease and other diseases of the circulatory system; Z80.51 Family history of malignant neoplasm of kidney; Z83.3 Family history of diabetes mellitus; Z90.710 Acquired absence of both cervix and uterus; Z88.8 Allergy status to other drugs, medicaments and biological substances; Z86.718 Personal history of other venous thrombosis and embolism; Z87.891 Personal history of nicotine dependence; Z98.890 Other specified postprocedural states; Z68.36 Body mass index [BMI] 36.0-36.9, adult
CPT/HCPCS: 87798 ×3; 87496; 87498; 87529; 88108; 88305; 87252; 87502; 87634; 87070; 87205; 87116; 87102; 87206; 31624; J2405; J2001; J2704

== ENCOUNTER → 2019-10-22 | Outpatient (CLI) | payer MEDICARE ==
--- NOTE | 2019-10-23 09:16 | CT ---
EXAMINATION TYPE: CT chest wo con DATE OF EXAM: 10/22/2019 COMPARISON: Chest x-ray 02/04/2019 HISTORY: asthma CT DLP: 853.4 mGycm. Automated Exposure Control for Dose Reduction was Utilized. TECHNIQUE: CT scan of the thorax is performed without IV contrast. Limited scanning performed with h igh-resolution algorithm through the chest and supine and prone positions FINDINGS: LUNGS: The lungs are grossly clear, there is no concerning parenchymal mass or nodule identified. No bronchiectasis, interlobular pleural septal lines, or honeycombing is present. Probable calcified no dule present in the right lower lobe, axial image 24 of the prone data set measures only 1 to 2 mm. N o significant emphysematous changes are evident. There is no pleural effusion or pneumothorax seen. The tracheobronchial tree is patent. MEDIASTINUM: Lack of IV contrast is noted to limit evaluation for mediastinal and especially hilar ad enopathy. There are no definitive greater than 1 cm hilar or mediastinal lymph nodes. No cardiomega ly or pericardial effusion is seen. There is a hiatal hernia present. Partial intrathoracic stomach, paraesophageal hernia noted OTHER: No additional significant abnormality is seen. IMPRESSION: No evident interstitial lung disease or emphysema. Hiatal hernia.
== END | disposition home or self-care (01) ==
LOC: RADCTMAIN 18:18
PROVIDERS: ATTEND Internal Medicine Critical Care Medicine
DX: K44.9 Diaphragmatic hernia without obstruction or gangrene (principal); J45.909 Unspecified asthma, uncomplicated
CPT/HCPCS: 71250

== ENCOUNTER → 2019-11-05 | Outpatient (CLI) | payer MEDICARE | END | disposition home or self-care (01) | LOC: CPPFTMAIN 13:28 | PROVIDERS: ATTEND Internal Medicine Critical Care Medicine | DX: J45.909 Unspecified asthma, uncomplicated (principal) | CPT/HCPCS: 94060; 94726; 94729 ==

== ENCOUNTER → 2019-11-13 | Outpatient (CLI) | payer MEDICARE ==
[~2019-11-13] MED LIST changes: -ALBUTEROL NEB (CONC) 2.5 MG/0.5 ML INHALATION ONE; -ATROPINE SULFATE 0.4 MG/ML 1 ML VIAL IM ONE; -LACTATED RINGERS 1,000 ML IV SCH; -LIDOCAINE 1% 20 ML VIAL (10MG/ML) FOR IV START INTRADERMA PRN; -LIDOCAINE 2% (PF) 20 MG/ML 5 ML VIAL INHALATION ONE; -LIDOCAINE VISCOUS 300 MG/15 ML CUP MUCOUS MEM ONE; +REGADENOSON 0.4 MG/5 ML SYRINGE IV ONE; -SODIUM CHLORIDE 0.9% 1,000 ML IV SCH
--- NOTE | 2019-11-13 11:17 | P.STRESS ---
- Stress Test Note Stress Test Results/Findings: Exam Performed: NM stress lexiscan cardiolite Exam Date: 11/13/19 Reason for Exam: SHORT OF BREATH Height: 5 ft 7 in Weight: 90.718 kg Protocol: LEXISCAN CARDIOLITE Stage: N/A Duration of Exercise: N/A Resting Heart Rate: 64 Resting Blood Pressure: 137/66 Maximum Achieved Heart Rate: 80 Maximum Achieved Blood Pressure: 137/66 85% PMHR: 135 100% PMHR: 159 METS: N/A Technologist Comment: Stress Test Results/Findings: Baseline heart rate 64 beats a minute, Baseline blood pressure 137/66 mmHg Baseline ECG shows sinus rhythm with normal cardiac intervals Patient received Lexiscan infusion per protocol There was no ECG evidence for ischemia no arrhythmias are noted heart rate and blood pressure remained normal New proportional be reported separately
--- NOTE | 2019-11-13 12:10 | NM ---
EXAMINATION TYPE: NM stress lexiscan cardiolite DATE OF EXAM: 11/13/2019 COMPARISON: NONE HISTORY: Shortness of breath and chest pain TECHNIQUE: After the intravenous administration of 8.78 mCi Tc 99m Sestamibi - Cardiolite resting SP ECT images acquired 45 minutes post injection. The patient received 0.4mg Lexiscan, 25.1 mCi Tc 99m Sestamibi - Stress images obtained [address] injection FINDINGS: Review of stress and rest SPECT images demonstrates no distinct perfusion abnormality. Gated analysi s shows normal wall motion with an estimated left ventricular ejection fraction of 43 %. IMPRESSION: No scintigraphic evidence for reversible ischemia. Resting ejection fraction of 43%.
== END | disposition home or self-care (01) ==
LOC: RADNMMAIN 08:21
PROVIDERS: ATTEND Internal Medicine Critical Care Medicine
DX: R06.02 Shortness of breath (principal); Z91.040 Latex allergy status; Z88.3 Allergy status to other anti-infective agents
CPT/HCPCS: 93017; 78452; A9500; J2785

== ENCOUNTER → 2020-06-03 | Outpatient (CLI) | payer MEDICARE ==
--- NOTE | 2020-06-03 11:16 | CT ---
EXAMINATION TYPE: CT angio chest DATE OF EXAM: 06/03/2020 10:33 AM COMPARISON: Prior CTA chest September 17, 2013 and high-resolution lung CT October 22, 2019 HISTORY: SOB, history of pulmonary embolism. CT DLP: 448.9 mGycm Automated exposure control for dose reduction was used. CONTRAST: CTA scan of the thorax is performed with IV Contrast, patient injected with 69 mL of Isovue 370, pulm onary embolism protocol. MIP images are created and reviewed. FINDINGS: LUNGS: Some dependent atelectasis in the bilateral lower lobes. No suspicious focal consolidation or groundglass opacity. No concerning new pulmonary nodules or masses. There is no pleural effusion or pneumothorax seen. The tracheobronchial tree is patent. MEDIASTINUM: There is suboptimal study with most dense contrast in SVC and near equal contrast in rig ht and left heart systems. There is however no convincing CT evidence for acute pulmonary embolism. There are no greater than 1 cm hilar or mediastinal lymph nodes. No cardiomegaly or pericardial eff usion is seen. OTHER: Moderate size hiatal hernia with surgical clip in abnormal twisting of the herniated stomach. Few scattered diverticula in the visualized portion of the colon. IMPRESSION: Suboptimal study without acute pulmonary embolism. No suspicious new acute pulmonary proc ess.
== END | disposition home or self-care (01) ==
LOC: RADCTMAIN 08:27
PROVIDERS: ATTEND Internal Medicine Critical Care Medicine
DX: R06.02 Shortness of breath (principal); Z88.3 Allergy status to other anti-infective agents; Z91.040 Latex allergy status
CPT/HCPCS: 71275; Q9967

== ENCOUNTER 2021-01-29 10:48 | Day surgery (SDC) | payer MEDICARE ==
[2021-01-27 12:25] VITALS: BMI 31.3
[~2021-01-29 10:48] MED LIST changes: +DEXAMETHASONE SOD PHOSPHATE 4 MG/ML 1 ML VIAL IV ONE; +LACTATED RINGERS 1,000 ML IV SCH; +MIDAZOLAM 2 MG/2 ML VIAL IV PRN; +ONDANSETRON 4 MG/2 ML VIAL IVP ONE; -REGADENOSON 0.4 MG/5 ML SYRINGE IV ONE; +SCOPOLAMINE 1.5MG/72HR PATCH TRANSDERM ONE
[2021-01-29] MEDS ORDERED: LIDOCAINE 1% (10MG/ML) FOR IV START INTRADERMA ONE (11:28)
[2021-01-29 11:30] LABS: Glucose,Whole Blood 97 mg/dL (75-99)
[2021-01-29] MEDS ORDERED: LIDOCAINE 1% INJ 10MG/ML (20 ML MDV) ONE (12:09)
[2021-01-29] MEDS ORDERED: MIDAZOLAM 2 MG/2 ML VIAL ONE (12:09)
[2021-01-29] MEDS ORDERED: PROPOFOL 10 MG/ML 20 ML VIAL IV ONE (12:09)
[2021-01-29] MEDS ORDERED: .fentaNYL (PF) 50 MCG/ML 2 ML AMP ONE (12:09)
[2021-01-29] MEDS ORDERED: ALBUTEROL HFA INHALER INHALATION ONE (12:09)
[2021-01-29] MEDS ORDERED: SUCCINYLCHOLINE CHLORIDE 100 MG/5 ML SYR IV ONE (12:09)
[2021-01-29] MEDS ORDERED: BUPIVACAINE (PF) 0.25% 30 ML VIAL SQ ONE (12:52)
[2021-01-29 13:43] VITALS: TEMP 96.9
[2021-01-29 15:01] VITALS: BP 121/66; PULSE 88; RESP 16
--- NOTE | 2021-01-29 15:27 | P.OP ---
Date of Procedure: 01/29/21 Preoperative Diagnosis: Hallux rigidus right foot Postoperative Diagnosis: Same Procedure(s) Performed: First metatarsalphalangeal joint arthrodesis right foot Implants: Arthrex MaxForsr 1st MTP plate and screws Arthrex Allomatrix DBM Anesthesia: GETA Surgeon: Michael Wiggins Estimated Blood Loss (ml): 3 Pathology: none sent Condition: stable Disposition: PACU Description of Procedure: The patient was brought into the operating room and placed on table supine position. Timeout was taken to confirm correct patient identifiers, correct site of surgery, and correct procedure. When all staff in the room in agreement with the timeout, anesthesia induced the patient and placed them under general anesthesia. A well-padded tourniquet was placed on the right ankle. Then 20 mL of 0.25% Marcaine was injected as a right ankle block. The right foot was then prepped and draped in usual manner. The foot was exsanguinated with an Esmarch bandage and then the tourniquet inflated to 250 mmHg. Attention was directed over the dorsomedial aspect of the first metatarsal phalangeal joint. Where an incision was made between the extensor hallucis longus tendon and the neurovascular structures. The incision was deepened down to the subcutaneous tissue careful to identify, avoid, and retract any neurovascular structures and cauterize any bleeding vessels. Blunt dissection was continued down to the first metatarsal phalangeal joint capsule. A linear periosteal and capsular incision was made medial to the extensor hallucis longus tendon. The incision was made long enough to adequately access the first MTP. The capsule and periosteum were then subperiosteally dissected away from the first metatarsal head as well as the base of the proximal phalanx. All soft tissues released around the joint for axis to both articular surfaces. A guidewire was then inserted in the central aspect of the first metatarsal head and advanced into the medullary canal parallel to the long access. The concave reamer was then used to remove all the cartilage and subchondral bone and expose bleeding medullary bone. Any dorsal osteophyte still present were removed manually with a Rongeur. The guidewire was removed and then used to fenestrate the head of the first metatarsal area the guidewire was then inserted at the central aspect of the articular surfaces of the base of the distal phalanx and advanced into medullary canal parallel to the long axis. The convex reamer was then used to remove the articular cartilage and subchondral bone. The guidewire was removed and used to fenestrate the base of the proximal phalanx. The wound is then thoroughly irrigated with normal saline. The Arthrex AlloMatrix was then mixed and combined and the back table. It was then placed between the arthrodesis segments. An Arthrex MaxForce plate was placed dorsally across the arthrodesis site. It was adjusted under direct fluoroscopic visualization until positioning was appropriate and then temporarily fixated. 2 distal locking screws were placed in the distal phalanx first. Then the drill hole for the compression device was made on the proximal aspect of the plate. The compression device was turned to increase the amount of bony contact at the arthrodesis site and then temporarily fixated. Then a compression screw was placed in the elongated slot of the proximal aspect of the plate. The screw was advanced until the head engaged the plate and then provided further compression across the arthrodesis site. A second nonlocking screw was placed in the proximal aspect of the plate closest to the arthrodesis site. At that point fluoroscopy was used to ensure that the alignment was adequate and that compression was maintained across the arthrodesis site. Once both were confirmed 2 additional locking screws were placed one distally and one in the most proximal hole in the plate. The wound is then irrigated thoroughly with antibiotic saline. Deep closure was done with 2-0 Vicryl. Subcu closure done for Monocryl. And skin closure done with 4-0 Stratafix in a running subcuticular manner. Dermal glue was placed across incision allowed to dry. Steri-Strips were then applied across incision as well as an Arthrex jumpstart dressing. A bulky dry dressings applied to the right foot and then the tourniquet was released and capillary refill return to all digits on the right foot. The patient was then placed in a well-padded, well molded plaster posterior mold/sugar tong splint. The splint was held in place with ankle at 90 of the foot in neutral until dried. Once dry the patient was reversed from general anesthesia and went to recovery with vital signs stable.
== END 2021-01-29 15:17 | disposition home or self-care (01) ==
LOC: OR 10:48
PROVIDERS: ATTEND Podiatrist
DX: M20.11 Hallux valgus (acquired), right foot (principal); I10 Essential (primary) hypertension; F32.A Depression, unspecified; K21.9 Gastro-esophageal reflux disease without esophagitis; R05.9 Cough, unspecified; E27.40 Unspecified adrenocortical insufficiency; H40.9 Unspecified glaucoma; J45.909 Unspecified asthma, uncomplicated; Z46.9 Encounter for fitting and adjustment of unspecified device; Z97.3 Presence of spectacles and contact lenses; Z85.828 Personal history of other malignant neoplasm of skin; F41.9 Anxiety disorder, unspecified; G43.909 Migraine, unspecified, not intractable, without status migrainosus; Z87.891 Personal history of nicotine dependence; R63.5 Abnormal weight gain; R73.03 Prediabetes; R26.81 Unsteadiness on feet; Z90.710 Acquired absence of both cervix and uterus; Z98.890 Other specified postprocedural states; Z83.3 Family history of diabetes mellitus; Z82.49 Family history of ischemic heart disease and other diseases of the circulatory system; Z84.89 Family history of other specified conditions; Z79.01 Long term (current) use of anticoagulants; Z79.1 Long term (current) use of non-steroidal anti-inflammatories (NSAID); Z79.891 Long term (current) use of opiate analgesic; Z79.899 Other long term (current) drug therapy; Z91.030 Bee allergy status; Z91.040 Latex allergy status; Z91.048 Other nonmedicinal substance allergy status
CPT/HCPCS: 28750; C1713; J2250; J1100; J0690; J2405; J2001; J3010; J0330; J2704

== ENCOUNTER → 2022-02-11 | Outpatient (CLI) | payer MEDICARE ==
--- NOTE | 2022-02-11 10:16 | US ---
EXAMINATION TYPE: US venous doppler duplex LE LT DATE OF EXAM: 02/11/2022 10:05 AM COMPARISON: NONE CLINICAL HISTORY: M25.462, I80.9. Left knee pain SIDE PERFORMED: Left TECHNIQUE: The lower extremity deep venous system is examined utilizing real time linear array sonog nestor with graded compression, doppler sonography and color-flow sonography. VESSELS IMAGED: Common Femoral Vein Deep Femoral Vein Greater Saphenous Vein * Femoral Vein Popliteal Vein Small Saphenous Vein * Proximal Calf Veins (* superficial vessels) Left Leg: Negative for DVT IMPRESSION: Grayscale, color doppler, spectral doppler imaging performed of the deep veins of the lo wer extremities. There is normal flow, compressibility, vascular waveforms.
== END | disposition home or self-care (01) ==
LOC: RADUSWWP 09:42
PROVIDERS: ATTEND Orthopaedic Surgery
DX: I80.9 Phlebitis and thrombophlebitis of unspecified site (principal); M25.462 Effusion, left knee

== ENCOUNTER 2022-02-15 12:40 | Day surgery (SDC) | payer MEDICARE ==
[~2022-02-15 12:40] MED LIST changes: +ATROPINE SULFATE 0.4 MG/ML 1 ML VIAL IM ONE; -DEXAMETHASONE SOD PHOSPHATE 4 MG/ML 1 ML VIAL IV ONE; +LIDOCAINE 1% (10MG/ML) FOR IV START INTRADERMA PRN; -MIDAZOLAM 2 MG/2 ML VIAL IV PRN; -ONDANSETRON 4 MG/2 ML VIAL IVP ONE; -SCOPOLAMINE 1.5MG/72HR PATCH TRANSDERM ONE
[2022-02-15 13:04] VITALS: TEMP 96.9
[2022-02-15] MEDS ORDERED: ONDANSETRON 4 MG/2 ML VIAL IVP ONE (13:18)
[2022-02-15] MEDS ORDERED: ONDANSETRON 4 MG/2 ML VIAL ONE (13:18)
[2022-02-15] MEDS ORDERED: HYDROCORTISONE SUCCINATE 100 MG/2 ML VIAL IVP ONE (13:21)
[2022-02-15] MEDS ORDERED: GLYCOPYRROLATE 0.2 MG/ML 2 ML VIAL ONE (13:23)
[2022-02-15] MEDS ORDERED: PROPOFOL 10 MG/ML 20 ML VIAL IV ONE (13:23)
[2022-02-15] MEDS ORDERED: LIDOCAINE 2% INJ 20 MG/ML (2 ML VIAL) ONE (13:23)
[2022-02-15] MEDS ORDERED: MIDAZOLAM 2 MG/2 ML VIAL ONE (13:23)
[2022-02-15] MEDS ORDERED: KETAMINE 10 MG/ML 20 ML VIAL ONE (13:23)
[2022-02-15 13:24] LABS: Glucose,Whole Blood 77 mg/dL (70-110)
[2022-02-15] MEDS ORDERED: LIDOCAINE 2% (PF) 20 MG/ML 2 ML AMP INHALATION ONE (13:44)
[2022-02-15 14:00] VITALS: RESP 16
[2022-02-15 14:13] VITALS: BP 109/67; PULSE 70
--- NOTE | 2022-02-15 20:13 | PCN ---
PROCEDURE NOTE PROCEDURES PERFORMED: Bronchoscopy, airway examination, therapeutic lavage, and bronchoalveolar lavage, right middle lobe. PREOPERATIVE DIAGNOSES: Severe persistent asthma, retained secretions. POSTOPERATIVE DIAGNOSES: Severe persistent asthma, retained secretions. ASSISTANTS: Two nurse practitioners, Chikis Kapoor and Everardo Wade. The patient's procedure was done in room #1. There were informed consent and universal time-out. ANESTHESIA PROVIDED: General anesthesia. DESCRIPTION OF PROCEDURE: After the patient was adequately sedated and being fully monitored, the bronchoscope was inserted through the left nostril. It passed through the nasopharynx which was a bit crowded, into the oropharynx. The hypopharynx was identified. The hypopharyngeal structures included the anterior commissure, true cords, false cords, piriform sinuses - right and left, valleculae, and epiglottis. All structures were normal. The glottic opening was topicalized with lidocaine, and then the bronchoscope was inserted through the glottic opening into the trachea. 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 Tracheal lj was sharp. The right and left mainstem were topicalized. The right upper lobe and its 3 segments, right middle lobe and its 2 segments, right lower lobe and its 5 segments, left upper lobe proper and its 2 segments, the lingula and its 2 segments, and the left lower lobe and its 4 segments all had similar findings of diffuse airway erythema and hyperemia. I would say it was moderate in severity. There was no dominant mass or tumor. There was a degree of bronchomalacia as well. There were thin secretions noted throughout. There was some mucosal friability. After thorough evaluation, the bronchoscope was wedged into the right middle lobe. BAL took place. The fluid will be sent for analysis. The patient tolerated the procedure well, and the bronchoscope was withdrawn. I did have an opportunity to speak and give the report to the patient's , Yang. MMODL / IJN: [id number] /
[2022-02-16 00:23] LABS: Appearance,BF Bloody
== END 2022-02-15 14:25 | disposition home or self-care (01) ==
LOC: ORWHC2ENDO 12:40
PROVIDERS: ATTEND Internal Medicine Critical Care Medicine
DX: J45.50 Severe persistent asthma, uncomplicated (principal); I10 Essential (primary) hypertension; F17.200 Nicotine dependence, unspecified, uncomplicated; F10.90 Alcohol use, unspecified, uncomplicated; Z79.899 Other long term (current) drug therapy; Z98.890 Other specified postprocedural states; Z88.8 Allergy status to other drugs, medicaments and biological substances
CPT/HCPCS: 88108; 88305; 89050; 31624; J2250; J1720; J2405; J2704; J2001 ×2

== ENCOUNTER → 2022-06-08 | Outpatient (CLI) | payer MEDICARE ==
--- NOTE | 2022-06-08 12:38 | XR ---
Exam: Left rib 2 views Date: 06/08/2022 Comparison: CT chest 06/03/2020 Clinical History: Rib pain Technique: 4 images of the left ribs were obtained per protocol. Findings: There is no acute displaced rib fracture. There are a few linear opacities at the left lung base, which likely relate to subsegmental atelectas is. There is no obvious pneumothorax. There is no significant pleural effusion. Impression: No acute displaced rib fracture identified.
== END | disposition home or self-care (01) ==
LOC: RADXRMAIN 10:58
PROVIDERS: ATTEND Internal Medicine Critical Care Medicine
DX: R07.82 Intercostal pain (principal)

== ENCOUNTER → 2023-10-02 | Outpatient (CLI) | payer MEDICARE | END | disposition home or self-care (01) | LOC: LABWHC1 20:56 | PROVIDERS: ATTEND Internal Medicine Critical Care Medicine | DX: Z00.00 Encounter for general adult medical examination without abnormal findings (principal); I10 Essential (primary) hypertension; E27.40 Unspecified adrenocortical insufficiency; M25.50 Pain in unspecified joint | CPT/HCPCS: 36415; 80053; 80061; 82306; 83036; 84439; 84443; 85025; 85652; 86038; 86140; 86431 ==

== ENCOUNTER → 2024-04-16 | Outpatient (CLI) | payer MEDICARE | LOC: CPPFTMAIN 11:30 | PROVIDERS: ATTEND Internal Medicine Critical Care Medicine | DX: J45.51 Severe persistent asthma with (acute) exacerbation (principal); Z87.891 Personal history of nicotine dependence; Z91.040 Latex allergy status; Z91.041 Radiographic dye allergy status; Z91.030 Bee allergy status; Z88.3 Allergy status to other anti-infective agents | CPT/HCPCS: 94060; 94726; 94729 ==

== ENCOUNTER → 2024-07-08 | Outpatient (CLI) | payer MEDICARE ==
[2024-07-08 18:31] LABS: T4, Free (Free Thyroxine) 1.29 ng/dL (0.80-1.80)
== END | disposition home or self-care (01) ==
LOC: LABWHC1 15:49
PROVIDERS: ATTEND Internal Medicine Critical Care Medicine
DX: E03.9 Hypothyroidism, unspecified (principal)
CPT/HCPCS: 36415; 84439; 84443; 84481